=== PATIENT | female | born 1970 | race Two or more races ===

== ENCOUNTER 2024-11-09 06:28 | Emergency (ER) | payer MEDICAID, SELFPAY ==
[2024-11-09 06:31] VITALS: BMI 46.3
[2024-11-09 06:40] VITALS: BP 177/102; PULSE 94; RESP 20; TEMP 37; O2SAT 96
--- NOTE | 2024-11-09 06:51 | PD.EDRME ---
Rapid Medical Screening Exam [facility] Arrival date/time: 11/09/24 06:28 54-year-old female with history of CHF and hypertension presents to the emergency department today stating that she took her first dose of Wegovy on Thursday and since then she has been vomiting and feeling ill Chief Complaint: Nausea/Vomiting/Diarrhea Vital signs: Vital Signs Temperature 98.6 F 11/09/24 06:40 Pulse Rate 94 11/09/24 06:40 Respiratory Rate 20 11/09/24 06:40 Blood Pressure 177/102 H 11/09/24 06:40 Pulse Oximetry (%) 96 11/09/24 06:40 Oxygen Delivery Method Room Air 11/09/24 06:40
--- NOTE | 2024-11-09 07:16 | XR_ITS ---
Examination: CT abdomen and pelvis without contrast. Coronal 3-D reconstructions. Sagittal 2-D reconstructions. Date and time of exam:November 09, 2024 0855 hours Comparison February 07, 2022 INDICATIONS: Left flank pain and nausea beginning 3 days ago CTDI: vol (mGy): 16.3 DLP: (mGycm): 937 Technique: Axial images of the abdomen have been obtained, 3 mm slice thickness Intravenous contrast material has not been administered. Low dose protocols were performed. One or more of the following dose reduction techniques were used; automated exposure control, adjustment of the mA and/or KV according to patient size, use of iterative reconstruction technique. Findings: Liver mildly irregular in contour, no focal liver lesions Distended gallbladder with cholelithiasis No pancreatic or adrenal mass Moderate bilateral renal parenchymal scar formation No renal or ureteral calculi, no hydronephrosis Aorta normal size No bowel obstruction Normal appendix Colonic diverticulosis, no definite diverticulitis Uterine fundal mass at least 4 cm No adnexal mass Contracted urinary bladder Advanced degenerative disc disease L5-S1 IMPRESSION: Suspicious for primary hepatocellular disease Distended gallbladder with gallstones, recommend hepatobiliary sonography follow-up Moderate bilateral renal parenchymal scar formation, no renal or ureteral calculi, no hydronephrosis Normal appendix Colonic diverticulosis, no definite diverticulitis
--- NOTE | 2024-11-09 07:17 | PD.EDNV ---
Nausea/Vomit./Diarrhea-RME/HPI General Chief complaint: Nausea/Vomiting/Diarrhea Stated complaint: VOMITING SINCE THURSDAY AFTER GETTING WEGOVY SHOT Time Seen by Provider: 11/09/24 07:00 Arrival date/time: 11/09/24 06:28 RME / HPI RME / HPI Narrative: 11/09/24 06:28 54-year-old female with history of CHF and hypertension presents to the emergency department today stating that she took her first dose of Wegovy on Thursday and since then she has been vomiting and feeling ill This section includes all my notes and documentations, including HPI, PE, and ED course.? Roberto Denson MD HPI: 54 year old female with history of CHF, hypertension, depression, anxiety presents to the ED for evaluation of nausea and vomiting beginning 2 days ago Thursday. Accompanied by abdominal pain, mostly located to the upper quadrants, rating as moderate. Patient states she administered 1mg/0.5mL of Wegovy for weight loss for the first time 2 days ago and unsure if symptoms are secondary to that. Denies any fevers, chills, diarrhea, constipation, or urinary symptoms. Does report vaginal bleeding although states she is currently going through menopause and vaginal bleeding is erratic in the last several months. No other complaints. ROS: All negative except as documented in HPI. Physical Exam: General:? Alert and oriented.? Appears uncomfortable. Eyes:? Conjunctivae and lids clear.? ENT:? No nasal congestion.? Neck:? Supple.? Heart:? RRR.? Lungs:? No respiratory distress.? Good air movement.? No rhonchi, wheezing, rales.?? Abdomen:? Soft with upper quadrant tenderness, difficult to localize. Legs:? No clubbing, cyanosis, edema.? Skin:? Warm and dry.?? Neuro:? Alert and oriented X 3.?? I reviewed all diagnostic test results. My review of the US report is distended gallbladder with gallstones. My review of the CT report is?cholelithiasis. Blood tests remarkable for WBC 12.9. At this point, diagnoses include?gallstones. Treatment here included?IVF and Zofran and Dilaudid and Augmentin. Significant improvement noted. Recommended more outpatient care. Based on my best medical judgment, made decision no further evaluation or treatment indicated at this time.? Patient understands and agrees to the discharge instructions customized and printed, see below. Discharge Instructions from Dr. Denson: 1. After evaluation, your symptoms are due to gallstones with early infection.? You need gallbladder to help digest fatty foods. 2. So to prevent future attacks, avoid all fatty and oily and greasy and buttery and dairy foods.? This usually means take out and fast food restaurants. 3. Zofran for nausea/vomiting.? [place] for severe pain.? Augmentin for the infection. 4. See our surgeon media reconciliation specialist (Dr. Gaytan) on 11/10/2024 for further care, including discussion of elective surgery.? 5. Seek immediate medical care with intolerable pain, fever, or with any concerns. Roberto Denson MD Related Data Home Medications ?Medication ?Instructions ?Recorded ?Confirmed furosemide 40 mg tablet (Lasix) 20 mg PO QDAY DIURETIC #0 tabs 03/20/14 03/05/19 carvedilol 6.25 mg tablet (Coreg) 6.25 mg PO BID #0 tabs 04/05/17 03/05/19 docusate sodium 100 mg capsule 100 mg PO QDAY 07/24/18 03/05/19 (DOK) sertraline 50 mg tablet 100 mg PO QDAY 07/24/18 03/05/19 alprazolam 2 mg tablet 2 mg PO TID 03/05/19 03/05/19 aspirin 81 mg tablet,delayed 81 mg PO QDAY 03/05/19 03/05/19 release ferrous sulfate 325 mg (65 mg 325 mg PO QDAY 03/05/19 03/05/19 iron) tablet (Feosol) losartan 25 mg tablet 25 mg PO QDAY 03/05/19 03/05/19 Previous Rx's ?Medication ?Instructions ?Recorded spironolactone 25 mg tablet 25 mg PO QAM #14 tabs 02/26/18 baclofen 20 mg tablet 20 mg PO QDAY #10 tabs 03/05/19 naproxen 500 mg tablet 500 mg PO BID PRN pain #30 tabs 03/05/19 amoxicillin 500 mg tablet 500 mg PO TID #30 tabs 09/25/19 albuterol sulfate 90 mcg/actuation 2 puff inhalation QID #18 grams 08/21/20 aerosol inhaler azithromycin 250 mg tablet See Rx Instructions PO .COMPLEX #6 08/21/20 tabs baclofen 10 mg tablet 10 mg PO BID #10 tabs 12/06/23 amoxicillin 875 mg-potassium 1 tab PO BID #14 tabs 11/09/24 clavulanate 125 mg tablet hydrocodone 5 mg-acetaminophen 325 2 tab PO TID PRN pain #30 tabs 11/09/24 mg tablet Allergies Allergy/AdvReac Type Severity Reaction Status Date / Time Iodinated Contrast Media Allergy Severe Rash Verified 03/13/24 08:16 (Iodinated Contrast- Oral and IV Dye) tramadol Allergy Severe DIFF Verified 03/13/24 08:16 BREATHING, RASH watermelon AdvReac Severe Hives Verified 03/13/24 08:16 Review of Systems Review of Systems Systems Reviewed: All systems reviewed, normal except as documented Past Medical History Past Medical History CARDIAC: Positive Cardiac Disorders, Cardiac Arrhythmia, Angina, Hypercholesterolemia, Congestive Heart Failure, Edema and Hypertension GASTROINTESTINAL: Positive Gastrointestinal Disorders PSYCHO/SOCIAL: Positive Anxiety OTHER HISTORY: Positive Blood Transfusions and Cervical Cancer Family History FAMILY HISTORY: Negative Family Cardiac Disorders Surgical History SURGICAL: Positive Pacemaker Social History SMOKING STATUS: Never smoker SUBSTANCE USE: does not use ED Exam Narrative Physical exam: As noted in HPI Course Quality Measures none Orders Category Date Time Status Insert IV NOW Care 11/09/24 06:[address] abdomen pelvis wo con Stat Exams 11/09/24 07:16 Completed US gall bladder Stat Exams 11/09/24 09:57 Completed CBC Stat Lab 11/09/24 08:20 Completed Comprehensive Metabolic Panel Stat Lab 11/09/24 08:20 Completed HCG,Qualitative Serum Stat Lab 11/09/24 08:20 Completed Lipase Stat Lab 11/09/24 08:20 Completed Mag [Magnesium] Stat Lab 11/09/24 08:20 Completed Amoxicillin/Pot Clav 875 [Augmentin 875] Med 11/09/24 11:19 Discontinued 1 tab PO X1 ONE HYDROmorphone INJ [Dilaudid Inj] Med 11/09/24 07:15 Discontinued 1 mg IVP X1 ONE HYDROmorphone INJ [Dilaudid Inj] Med 11/09/24 11:46 Discontinued 1 mg IVP X1 ONE HYDROmorphone INJ [Dilaudid Inj] Med 11/09/24 13:39 Discontinued 2 mg IVP X1 ONE Metoclopramide Inj [Reglan Inj] Med 11/09/24 06:50 Discontinued 10 mg IVP X1 ONE Ondansetron Inj [Zofran Inj] Med 11/09/24 07:15 Discontinued 4 mg IV X1 ONE Ondansetron Inj [Zofran Inj] Med 11/09/24 11:46 Discontinued 4 mg IV X1 ONE Sodium Chloride 0.9% 1000 ml [Ns] 1,000 ml Med 11/09/24 07:15 Discontinued IV 999 mls/hr Vital Signs Vital signs: Vital Signs Temperature 98.6 F 11/09/24 06:40 Pulse Rate 94 11/09/24 06:40 Respiratory Rate 20 11/09/24 06:40 Blood Pressure 177/102 H 11/09/24 06:40 Pulse Oximetry (%) 96 11/09/24 06:40 Oxygen Delivery Method Room Air 11/09/24 06:40 Pulse ox is 96% on room air which is adequate. Nausea/Vomiting/Diarrhea MDM Narrative MDM Narrative:: Renetta Umanzor am scribing for and in the presence of Dr. Denson. Patient data External records reviewed:: [facility] previous records (I reviewed ED visit on 04/03/2024 ) Clinical information provided by:: patient Social determinants that could affect healthcare access:: none Patient has the following chronic illnesses:: CHF, hypertension, depression, anxiety How is presenting disease/condition affected by chronic disease/condition?: exacerbated by Evaluation data The following diagnostics were reviewed and interpreted by me:: lab results and radiology exam(s) Lab and/or radiology exams considered but not ordered:: None Interpretation Summary: My review of the US report is distended gallbladder with gallstones. My review of the CT report is?cholelithiasis. Medications / Prescriptions Medications / Prescriptions considered but not ordered:: None Medication administrations:: Medication Administration History Discontinued Medications Amoxicillin/Clavulanate Potassium (Amoxicillin/Pot Clav 875 Tablet) 1 tab PO X1 ONE Stop: 11/09/24 11:20 Last Admin: 11/09/24 12:33 Dose: 1 tab Documented By: DO Hydromorphone HCl (Hydromorphone Inj 2 Mg/Ml Vial) 1 mg IVP X1 ONE Stop: 11/09/24 07:16 Last Admin: 11/09/24 08:05 Dose: 1 mg Documented By: DO Hydromorphone HCl (Hydromorphone Inj 2 Mg/Ml Vial) 1 mg IVP X1 ONE Stop: 11/09/24 11:47 Last Admin: 11/09/24 12:33 Dose: 1 mg Documented By: DO Hydromorphone HCl (Hydromorphone Inj 2 Mg/Ml Vial) 2 mg IVP X1 ONE Stop: 11/09/24 13:40 Last Admin: 11/09/24 13:59 Dose: 2 mg Documented By: DO Sodium Chloride (Ns) 1,000 mls @ 999 mls/hr IV .Q1H1M ONE Stop: 11/09/24 08:15 Last Infusion: 11/09/24 13:40 Dose: Infused Documented By: Admin: 11/09/24 08:02 Dose: 999 mls/hr Documented By: DO Metoclopramide HCl (Metoclopramide Inj 5 Mg/Ml Vial 2 Ml) 10 mg IVP X1 ONE; Protocol Stop: 11/09/24 06:51 Last Admin: 11/09/24 08:04 Dose: 10 mg Documented By: DO Ondansetron HCl (Ondansetron Inj 2 Mg/Ml Inj 2 Ml) 4 mg IV X1 ONE; Protocol Stop: 11/09/24 07:16 Last Admin: 11/09/24 08:03 Dose: 4 mg Documented By: DO Ondansetron HCl (Ondansetron Inj 2 Mg/Ml Inj 2 Ml) 4 mg IV X1 ONE; Protocol Stop: 11/09/24 11:47 Last Admin: 11/09/24 12:33 Dose: 4 mg Documented By: DO Patient given IV fluid and Zofran and Reglan and Dilaudid and Augmentin. Consultations Consultation(s) initiated? (list below): No Diagnosis Nausea Differential Diagnosis: traveler's diarrhea, food poisoning, gastroenteritis, drug-induced nausea and vomiting, dehydration and other (Viral illness, gastritis, biliary colic) Most likely diagnosis given after review of the tests above:: Biliary colic Admission Indicated Admission indicated?: not indicated Explain why admission is indicated or not indicated:: Does not meet admission criteria. Admission Request Was there a request for admission?: No Disposition Plan Disposition Plan: Discharge Discharge Attestation Discharge Attestation: The patient and all family members were given an opportunity to ask questions and understood the discharge instructions. Discharge instructions specifically effects, indications for sooner follow up or return to the emergency department, and the expected course of current diagnosis. Patient condition: Stable Discharge Plan Plan Patient Disposition: HOME (Self Care) Prescriptions/Referrals Prescriptions/Med Rec: New hydrocodone-acetaminophen 5-325 mg tablet 2 tab PO TID MDD 6 PRN (Reason: pain) Qty: 30 0RF amoxicillin-pot clavulanate 875-125 mg tablet 1 tab PO BID Qty: 14 0RF No Action furosemide [Lasix] 40 MG tablet 20 mg PO QDAY Qty: 0 carvedilol [Coreg] 6.25 MG tablet 6.25 mg PO BID Qty: 0 spironolactone 25 mg tablet 25 mg PO QAM Qty: 14 0RF docusate sodium [DOK] 100 mg Capsule 100 mg PO QDAY sertraline 50 mg Tablet 100 mg PO QDAY aspirin 81 mg Tablet,Delayed Release (Dr/Ec) 81 mg PO QDAY ferrous sulfate [Feosol] 325 mg (65 mg iron) Tablet 325 mg PO QDAY losartan 25 mg Tablet 25 mg PO QDAY alprazolam 2 mg Tablet 2 mg PO TID baclofen 20 mg tablet 20 mg PO QDAY Qty: 10 0RF naproxen 500 mg tablet 500 mg PO BID PRN (Reason: pain) Qty: 30 0RF amoxicillin 500 mg tablet 500 mg PO TID Qty: 30 0RF azithromycin 250 mg tablet See Rx Instructions .ROUTE .COMPLEX Qty: 6 0RF Rx Instructions: take 500 mg today (day 1), then 250 mg for 4 days (days 2-5) albuterol sulfate 90 mcg/actuation HFA aerosol inhaler 2 puff inhalation QID Qty: 18 0RF baclofen 10 mg tablet 10 mg PO BID Qty: 10 0RF Referrals: Alexandra Gaytan MD [Physician] - Wilbur Yen MD [Primary Care Provider] - In 1 week Problem List Clinical Impression: Gallstones Patient/Caregiver Discharge Instructions Discharge Activity: activity as tolerated Education Materials: ED Gallstones with Biliary Colic Additional Instructions: Discharge Instructions from Dr. Denson: 1. After evaluation, your symptoms are due to gallstones with early infection.? You need gallbladder to help digest fatty foods. 2. So to prevent future attacks, avoid all fatty and oily and greasy and buttery and dairy foods.? This usually means take out and fast food restaurants. 3. Zofran for nausea/vomiting.? [place] for severe pain.? Augmentin for the infection. 4. See our surgeon media reconciliation specialist (Dr. Gaytan) on 11/10/2024 for further care, including discussion of elective surgery.? 5. Seek immediate medical care with intolerable pain, fever, or with any concerns. Print Language: Turkmen Stand Alone Forms: Lexie Award Info., Patient Portal Info Letter
[2024-11-09] MEDS: SODIUM CHLORIDE 0.9% 1000 ML 1,000 ML 999 ML IV (08:02)
[2024-11-09] MEDS: ONDANSETRON INJ 2 MG/ML INJ 2 ML 4 MG IV ×2 (08:03→12:33)
[2024-11-09] MEDS: METOCLOPRAMIDE INJ 5 MG/ML VIAL 2 ML 10 MG IVP (08:04)
[2024-11-09] MEDS: HYDROmorphone INJ 2 MG/ML VIAL 1 MG IVP ×2 (08:05→12:33)
[2024-11-09 08:15] VITALS: BP 145/93; PULSE 93; RESP 18; TEMP 37; O2SAT 94
[2024-11-09 08:34] LABS: Basophils % (Auto) 0 % (0-2.5); Eosinophils % (Auto) 0 % (0-10); Hematocrit 40.5 % (36.0-46.0); Hemoglobin 13.7 g/dL (12.0-16.0); Immature Granulocytes % (Auto) 1 % (0-0); Immature Granulocytes Auto 0.13 Thou/mm3 (0.00-0.00); Lymphocytes # (Auto) 1.4 Thou/mm3 (1.0-4.8); Lymphocytes % (Auto) 11 % (10-50); Mean Corpuscular HGB Conc 33.8 g/dl (31.0-37.0); Mean Corpuscular Hemoglobin 31.1 pg (25.0-35.0); Mean Corpuscular Volume 92 fL (80-100); Monocytes # (Auto) 0.5 Thou/mm3 (0.0-0.8); Monocytes % (Auto) 4 % (0-12); Neutrophils # (Auto) 10.9 Thou/mm3 (1.8-7.7); Neutrophils % (Auto) 84 % (37-80); Nucleated Red Blood Cell % 0 /100 WBC (0); Platelet Count 284 Thou/mm3 (140-440); RDW Standard Deviation 43.4 fL (36.4-46.3); White Blood Count 12.9 Thou/mm3 (3.6-11.0)
[2024-11-09 08:48] LABS: HCG,Qualitative Serum Negative
[2024-11-09 08:53] LABS: Alanine Aminotransferase 12 U/L (10-49); Albumin, Serum 5.1 gm/dL (3.5-5.0); Albumin/Globulin Ratio 1.8 (1.2-2.2); Alkaline Phosphatase 84 U/L (46-116); Anion Gap 12 (7-16); Aspartate Amino Transferase 17 U/L (0-34); BUN/Creatinine Ratio 20 Ratio (12-20); Bilirubin,Total 0.5 mg/dL (0.3-1.2); Blood Urea Nitrogen 12 mg/dL (9-23); Calcium 10.5 mg/dL (8.3-10.6); Calcium (Corrected) 10.5 mg/dL (8.5-10.1); Carbon Dioxide 27.5 mMol/L (20.0-31.0); Chloride 103 mMol/L (98-107); Creatinine (Component) 0.6 mg/dL (0.6-1.3); Estimated Creatinine Clearance 131.5 mL/min (>60); Globulin 2.9 gm/dL (2.3-3.5); Glucose 108 mg/dL (74-106); Lipase 29 U/L (12-53); Magnesium 1.9 mg/dL (1.6-2.6); Osmolality,Calculated 283 (275-295); Potassium 3.4 mMol/L (3.4-5.1); Sodium 142 mMol/L (136-145); eGFR > 60 See Note
--- NOTE | 2024-11-09 09:38 | PC.NURSE ---
food tray given to pt at this time
--- NOTE | 2024-11-09 09:57 | XR_ITS ---
Examination: Abdomen sonogram, Limited Date and time of exam: November 09, 2024 1033 hours INDICATIONS: Upper abdominal pain and vomiting beginning 3 days ago Technique: Real-time pardo scale transabdominal sonographic images of the upper abdomen obtained. Findings: 11 mm gallstone Distended gallbladder Gallbladder wall 0.41 cm no edema Common bile duct 0.4 cm no stones Pancreatic head 4.8 cm Liver 16.3 cm lobular contour fatty infiltration no focal liver lesions Normal hepatopedal portal venous flow Patent IVC IMPRESSION: Cholelithiasis Distended gallbladder Gallbladder wall is thickened 0.41 cm, consider HIDA scan or MRCP follow-up to exclude cholecystitis Sonographic measurement pancreas prominent, however on the CT abdomen study today no pancreatic mass or peripancreatic edema Primary hepatocellular disease
--- NOTE | 2024-11-09 10:11 | PC.NURSE ---
pt given small amount of ice chips at this time per request. okay per Dr. Denson
--- NOTE | 2024-11-09 10:33 | PC.NURSE ---
pt to ultrasound
[2024-11-09 12:19] VITALS: BP 178/76; PULSE 83; RESP 20; TEMP 36.6; O2SAT 95
[2024-11-09] MEDS: AMOXICILLIN/POT CLAV 875 TABLET 1 TAB PO (12:33)
[2024-11-09 13:39] VITALS: BP 173/101; PULSE 76; RESP 18; TEMP 36.9; O2SAT 94
--- NOTE | 2024-11-09 13:39 | PC.NURSE ---
WENT INTO ROOM TO DC PT. PT C/O PAIN TO ABD 05/21 AND BP 173/101. DR DODD INFORMED. AWAITING NEW ORDERS AT THIS TIME.
[2024-11-09] MEDS: HYDROmorphone INJ 2 MG/ML VIAL IVP (13:59)
[2024-11-09 15:29] VITALS: BP 167/97; PULSE 81; RESP 18; O2SAT 94
== END 2024-11-09 15:39 | disposition home or self-care (01) ==
PROVIDERS: Nurse Practitioner Primary Care; Emergency Provider Emergency Medicine; PCP Family Medicine
DX: K80.20 Calculus of gallbladder without cholecystitis without obstruction (principal); K82.8 Other specified diseases of gallbladder
CPT/HCPCS: 36415; 74176; 76705; 80053; 81001; 81025; 83690; 83735; 84703; 85025; 96361; 96374; 96375; 96376; 99284; J2405; J2765; J3490; J7030; A9270

== ENCOUNTER 2025-01-01 09:02 | Emergency (ER) | payer MEDICAID, SELFPAY ==
[2025-01-01 09:17] VITALS: BP 126/75; PULSE 91; RESP 24; TEMP 36.4; O2SAT 96; BMI 51.7
--- NOTE | 2025-01-01 09:26 | XR_ITS ---
Examination: Abdomen sonogram, Limited Date and time of exam: January 01, 2025 0936 hours INDICATIONS: Right upper abdominal pain and vomiting beginning one week ago, history gallstones Technique: Real-time pardo scale transabdominal sonographic images of the upper abdomen obtained. Findings: 12 mm gallstone Gallbladder wall is thickened 0.40 cm although no edema Common bile duct 0.5 cm Pancreatic head 3.0 cm Liver 18 cm fatty infiltration Normal hepatopedal portal venous flow Patent IVC IMPRESSION: Cholelithiasis Abnormal thickening of the gallbladder wall 0.40 cm, consider HIDA scan or MRCP follow-up to exclude cholecystitis Moderate hepatomegaly, fatty liver
--- NOTE | 2025-01-01 09:27 | PD.EDRME ---
Rapid Medical Screening Exam RME Arrival date/time: 01/01/25 09:02 This is a 54-year-old female who presents to the emergency department with complaints of right upper quadrant abdominal pain history of gallstones I have greeted and performed a focused initial assessment of this patient. Initial appropriate labs ordered at this time. A comprehensive ED assessment and evaluation of the patient and analysis of all test and completion of medical decision making process will be conducted by additional ED provider. Chief Complaint: Abdominal Pain Time Seen by Provider: 01/01/25 09:08 Vital signs: Vital Signs Temperature 97.6 F 01/01/25 09:17 Pulse Rate 91 01/01/25 09:17 Respiratory Rate 24 H 01/01/25 09:17 Blood Pressure 126/75 01/01/25 09:17 Pulse Oximetry (%) 96 01/01/25 09:17 Oxygen Delivery Method Room Air 01/01/25 09:17
[2025-01-01] MEDS: ONDANSETRON ODT 4 MG TABRAP PO (09:31)
[2025-01-01] MEDS: HYDROcodone/APAP 5/325 TABLET 1 TAB PO (10:07)
[2025-01-01 10:28] LABS: Basophils % (Auto) 1 % (0-2.5); Eosinophils # (Auto) 0.1 Thou/mm3 (0.0-0.5); Eosinophils % (Auto) 1 % (0-10); Hematocrit 39.1 % (36.0-46.0); Hemoglobin 12.8 g/dL (12.0-16.0); Immature Granulocytes % (Auto) 0 % (0-0); Immature Granulocytes Auto 0.01 Thou/mm3 (0.00-0.00); Lymphocytes # (Auto) 1.7 Thou/mm3 (1.0-4.8); Lymphocytes % (Auto) 22 % (10-50); Mean Corpuscular HGB Conc 32.7 g/dl (31.0-37.0); Mean Corpuscular Hemoglobin 30.8 pg (25.0-35.0); Mean Corpuscular Volume 94 fL (80-100); Monocytes # (Auto) 0.5 Thou/mm3 (0.0-0.8); Monocytes % (Auto) 7 % (0-12); Neutrophils # (Auto) 5.3 Thou/mm3 (1.8-7.7); Neutrophils % (Auto) 70 % (37-80); Nucleated Red Blood Cell % 0 /100 WBC (0); Platelet Count 243 Thou/mm3 (140-440); RDW Standard Deviation 45.1 fL (36.4-46.3); Red Blood Count 4.16 Miln/mm3 (4.00-5.20); White Blood Count 7.6 Thou/mm3 (3.6-11.0)
[2025-01-01 10:35] LABS: Alanine Aminotransferase 20 U/L (10-49); Albumin, Serum 4.7 gm/dL (3.5-5.0); Albumin/Globulin Ratio 1.7 (1.2-2.2); Alkaline Phosphatase 82 U/L (46-116); Anion Gap 7 (7-16); Aspartate Amino Transferase 20 U/L (0-34); BUN/Creatinine Ratio 15 Ratio (12-20); Bilirubin,Total 0.3 mg/dL (0.3-1.2); Blood Urea Nitrogen 12 mg/dL (9-23); Calcium 9.6 mg/dL (8.3-10.6); Calcium (Corrected) 9.6 mg/dL (8.5-10.1); Carbon Dioxide 30.8 mMol/L (20.0-31.0); Chloride 102 mMol/L (98-107); Creatinine (Component) 0.8 mg/dL (0.6-1.3); Estimated Creatinine Clearance 105.7 mL/min (>60); Globulin 2.7 gm/dL (2.3-3.5); Glucose 102 mg/dL (74-106); Lipase 47 U/L (12-53); Osmolality,Calculated 279 (275-295); Potassium 3.5 mMol/L (3.4-5.1); Sodium 140 mMol/L (136-145); Total Protein 7.4 gm/dL (5.7-8.2); eGFR > 60 See Note
[2025-01-01 11:06] LABS: Collection Type, Urine Clean Catch
--- NOTE | 2025-01-01 11:06 | PD.EDABDPN ---
ED Abdominal Pain RME/HPI General Chief Complaint: Abdominal Pain Stated complaint: RIGHT UPPER QUADRANT PAIN Time seen by provider: 01/01/25 09:08 Arrival date/time: 01/01/25 09:02 54 year old female present to emergency room with c/o of RUQ pain for 1 week, pt report history of gallstones, anemia, CHF , GERD, pacemaker, HDL. Pt had schedule outpatient surgery to removal of gallbladder but did not get cardiology clearance by Dr. Pritchett ( need stress test, schedule for December, ) Pt is currently on wegovy. SEVERITY: Symptoms are described as being severe with limitations on activities of daily living CONTEXT: The patient is unable to identify any inciting events. DURATION/TIMING: The symptoms started approximately 1 week ago worsen ASSOCIATED SYMPTOMS: Nausea and vomiting ongoing MODIFYING FACTORS: The patient is unable to identify any alleviating or aggravating symptoms. PERTINENT ROS: no fevers, no cough, no pleuritic pain, no ripping or tearing sensations, denies any lower extremity edema and no unilateral swelling, no chest pain/shortness of breath , no dizziness/headache no rash no loc/syncope episode no dsyuria,urgency,frequency REVIEW OF SYSTEMS: See History of Present Illness - with the exception of those mentioned in the history of present illness, all other systems reviewed and reported as negative GENERAL: In general the patient is awake, interactive, in an emergency department gurney. Obese HEAD/EYES/EARS/NOSE/THROAT: normo-cephalic, atraumatic, mucus membranes are moist, anicteric, palpebral conjunctiva is pink, trachea is midline. CARDIOVASCULAR: regular rate and regular rhythm, no murmurs, heart sounds are not distant, strong pulses in all four extremities that are equal and symmetric bilateral upper and lower extremities, normal capillary refill. CHEST/PULMONARY: normal chest rise and fall, good air movement, clear to auscultation bilaterally, normal inspiratory to expiratory ratios without evidence of respiratory distress. NECK: No midline/Paraspinal tenderness, no step off ROM/Strenght intact No Kernig and bruzinski sign. No trauma ABDOMEN: soft, RUQ tenderness, no flank tenderness no masses appreciated BACK: normal range of motion without pain. NEUROLOGICAL: cranio-facial features are symmetric, moves all four extremities equally without obvious limitations or weakness. EXTREMITY: no tenderness to palpation over the long bones or large joints of the bilateral upper and lower extremities, no joint swelling, no joint erythema, no signs of trauma, no unilateral leg swelling and no peripheral edema. SKIN: warm, dry, well-perfused, no jaundice, no rash, no telangiectasias or petechia. PSYCH: calm, cooperative, no evidence of psychosis or agitation RME / HPI RME / HPI narrative: 01/01/25 09:02 This is a 54-year-old female who presents to the emergency department with complaints of right upper quadrant abdominal pain history of gallstones I have greeted and performed a focused initial assessment of this patient. Initial appropriate labs ordered at this time. A comprehensive ED assessment and evaluation of the patient and analysis of all test and completion of medical decision making process will be conducted by additional ED provider. Related Data Home Medications ?Medication ?Instructions ?Recorded ?Confirmed furosemide 40 mg tablet (Lasix) 20 mg PO QDAY DIURETIC #0 tabs 03/20/14 03/05/19 carvedilol 6.25 mg tablet (Coreg) 6.25 mg PO BID #0 tabs 04/05/17 03/05/19 docusate sodium 100 mg capsule 100 mg PO QDAY 07/24/18 03/05/19 (DOK) sertraline 50 mg tablet 100 mg PO QDAY 07/24/18 03/05/19 alprazolam 2 mg tablet 2 mg PO TID 03/05/19 03/05/19 aspirin 81 mg tablet,delayed 81 mg PO QDAY 03/05/19 03/05/19 release ferrous sulfate 325 mg (65 mg 325 mg PO QDAY 03/05/19 03/05/19 iron) tablet (Feosol) losartan 25 mg tablet 25 mg PO QDAY 03/05/19 03/05/19 Previous Rx's ?Medication ?Instructions ?Recorded spironolactone 25 mg tablet 25 mg PO QAM #14 tabs 02/26/18 baclofen 20 mg tablet 20 mg PO QDAY #10 tabs 03/05/19 naproxen 500 mg tablet 500 mg PO BID PRN pain #30 tabs 03/05/19 amoxicillin 500 mg tablet 500 mg PO TID #30 tabs 09/25/19 albuterol sulfate 90 mcg/actuation 2 puff inhalation QID #18 grams 08/21/20 aerosol inhaler azithromycin 250 mg tablet See Rx Instructions PO .COMPLEX #6 08/21/20 tabs baclofen 10 mg tablet 10 mg PO BID #10 tabs 12/06/23 amoxicillin 875 mg-potassium 1 tab PO BID #14 tabs 11/09/24 clavulanate 125 mg tablet hydrocodone 5 mg-acetaminophen 325 2 tab PO TID PRN pain #30 tabs 11/09/24 mg tablet Allergies Allergy/AdvReac Type Severity Reaction Status Date / Time Iodinated Contrast Media Allergy Severe Rash Verified 01/01/25 09:08 (Iodinated Contrast- Oral and IV Dye) tramadol Allergy Severe DIFF Verified 01/01/25 09:08 BREATHING, RASH watermelon AdvReac Severe Hives Verified 01/01/25 09:08 Course Course Course Narrative: Review recent labs, US:IMPRESSION: Cholelithiasis Abnormal thickening of the gallbladder wall 0.40 cm, consider HIDA scan or MRCP follow-up to exclude cholecystitis Moderate hepatomegaly, fatty liver No MRCP/HIDA available on thursday, ask charged nurse Quality Measures none Orders Category Date Time Status EKG (ED ONLY) *Do not use* NOW Care 01/01/25 11:27 Completed EKG (ED Only) Stat Exams 01/01/25 11:27 Draft US gall bladder Stat Exams 01/01/25 09:26 Completed CBC Stat Lab 01/01/25 09:55 Completed Comprehensive Metabolic Panel Stat Lab 01/01/25 09:55 Completed INR [Prothrombin Time with INR] Stat Lab 01/01/25 09:55 Completed Lipase Stat Lab 01/01/25 09:55 Completed Troponin I Stat Lab 01/01/25 09:55 Completed Urinalysis Stat Lab 01/01/25 10:45 Completed HYDROcodone*/APAP 5/325 [[place] 5/325] Med 01/01/25 09:26 Discontinued 1 tab PO X1 ONE HYDROmorphone INJ [Dilaudid Inj] Med 01/01/25 12:58 Discontinued 1 mg IVP X1 ONE Ketorolac Inj [Toradol Inj] Med 01/01/25 11:56 Discontinued 30 mg IM X1 ONE Ondansetron Inj [Zofran Inj] Med 01/01/25 12:58 Discontinued 4 mg IV X1 ONE Ondansetron Odt [Zofran Odt] Med 01/01/25 09:26 Discontinued 4 mg PO X1 ONE Reevaluation(s) Reevaluation #1: pt is feeling better and comfortable to follow up with specialist for clearance. Vital Signs Vital signs: Vital Signs Temperature 97.6 F 01/01/25 09:17 Pulse Rate 91 01/01/25 09:17 Respiratory Rate 24 H 01/01/25 09:17 Blood Pressure 126/75 01/01/25 09:17 Pulse Oximetry (%) 96 01/01/25 09:17 Oxygen Delivery Method Room Air 01/01/25 09:17 Procedures -ED EKG Interpretation #1: Date of EK01/01/25 Rate: 77 Interpretation: Reviewed by me EKG Impression: Normal sinus rhythm, No acute ST-T changes, No ectopy and No ischemic changes Abdominal Pain MDM MDM Narrative MDM Narrative:: Patient?s symptoms not typical for emergent causes of abdominal pain such as, but not limited to, appendicitis, abdominal aortic aneurysm, surgical biliary disease, pancreatitis, SBO, mesenteric ischemia, serious intra-abdominal bacterial illness. Presentation also not typical of gynecologic emergencies such as?TOA, Ovarian Torsion, PID. Not Ectopic. Doubt atypical ACS. Pt tolerating PO. Disposition: Patient will be discharged with strict return precautions and follow up with primary MD within 12-24 hours for further evaluation. Patient understands that this still may have an early presentation of an emergent medical condition such as appendicitis that will require a recheck. Patient data External records reviewed:: [facility] previous records Clinical information provided by:: patient Social determinants that could affect healthcare access:: none Patient has the following chronic illnesses:: HDL, Gerd, Gallstones, CHF How is presenting disease/condition affected by chronic disease/condition?: exacerbated by Evaluation data The following diagnostics were reviewed and interpreted by me:: lab results and radiology exam(s) Lab and/or radiology exams considered but not ordered:: n/a Interpretation Summary: US: Cholelithiasis Abnormal thickening of the gallbladder wall 0.40 cm, consider HIDA scan or MRCP follow-up to exclude cholecystitis cbc/cmp/urine/labs wnl Medications / Prescriptions Medications or Prescriptions considered but not ordered:: n/a Medication administrations:: Medication Administration History Discontinued Medications Hydrocodone Bitart/Acetaminophen (Hydrocodone/Apap 5/325 Tablet) 1 tab PO X1 ONE Stop: 01/01/25 09:27 Last Admin: 01/01/25 10:07 Dose: 1 tab Documented By: MARCUS Hydromorphone HCl (Hydromorphone Inj 2 Mg/Ml Vial) 1 mg IVP X1 ONE Stop: 01/01/25 12:59 Last Admin: 01/01/25 13:26 Dose: 1 mg Documented By: MOSES Ketorolac Tromethamine (Ketorolac Inj 60 Mg/2 Ml Vial) 30 mg IM X1 ONE Stop: 01/01/25 11:57 Last Admin: 01/01/25 12:08 Dose: 30 mg Documented By: GISSELLE Ondansetron HCl (Ondansetron Odt 4 Mg Tabrap) 4 mg PO X1 ONE Stop: 01/01/25 09:27 Last Admin: 01/01/25 09:31 Dose: 4 mg Documented By: LLOYD Ondansetron HCl (Ondansetron Inj 2 Mg/Ml Inj 2 Ml) 4 mg IV X1 ONE; Protocol Stop: 01/01/25 12:59 Last Admin: 01/01/25 13:25 Dose: 4 mg Documented By: MOSES as stated above Consultations Consultation(s) initiated? (list below): Yes Consultation #1 (Physician, Specialty, Details): Dr. Irizarry for consult report patient okay to go home, need clearance from cardiology, pain control and discharge. spoke with patient and agreeable with treatment/plan.. Diagnosis Differential diagnosis abdominal pain: abdominal pain, calculus of kidney, constipation, gastroenteritis, pancreatitis and other (gallstone/choley ) Most likely diagnosis given after review of the tests above:: gallstone Admission Indicated Admission indicated?: not indicated Admission Request Was there a request for admission?: No Disposition Plan Disposition Plan: Discharge Discharge Attestation Discharge Attestation: The patient and all family members were given an opportunity to ask questions and understood the discharge instructions. Discharge instructions specifically effects, indications for sooner follow up or return to the emergency department, and the expected course of current diagnosis. Patient condition: Stable Discharge Plan Plan Health Concerns: Follow with PMD as directed Take tylenol or motrin as need Return to ED if sx worsen Prescriptions/Referrals Prescriptions/Med Rec: No Action furosemide [Lasix] 40 MG tablet 20 mg PO QDAY Qty: 0 carvedilol [Coreg] 6.25 MG tablet 6.25 mg PO BID Qty: 0 spironolactone 25 mg tablet 25 mg PO QAM Qty: 14 0RF docusate sodium [DOK] 100 mg Capsule 100 mg PO QDAY sertraline 50 mg Tablet 100 mg PO QDAY aspirin 81 mg Tablet,Delayed Release (Dr/Ec) 81 mg PO QDAY ferrous sulfate [Feosol] 325 mg (65 mg iron) Tablet 325 mg PO QDAY losartan 25 mg Tablet 25 mg PO QDAY alprazolam 2 mg Tablet 2 mg PO TID baclofen 20 mg tablet 20 mg PO QDAY Qty: 10 0RF naproxen 500 mg tablet 500 mg PO BID PRN (Reason: pain) Qty: 30 0RF amoxicillin 500 mg tablet 500 mg PO TID Qty: 30 0RF azithromycin 250 mg tablet See Rx Instructions .ROUTE .COMPLEX Qty: 6 0RF Rx Instructions: take 500 mg today (day 1), then 250 mg for 4 days (days 2-5) albuterol sulfate 90 mcg/actuation HFA aerosol inhaler 2 puff inhalation QID Qty: 18 0RF baclofen 10 mg tablet 10 mg PO BID Qty: 10 0RF hydrocodone-acetaminophen 5-325 mg tablet 2 tab PO TID MDD 6 PRN (Reason: pain) Qty: 30 0RF amoxicillin-pot clavulanate 875-125 mg tablet 1 tab PO BID Qty: 14 0RF Referrals: Wilbur Yen MD [Primary Care Provider] - In 1 week Problem List Clinical Impression: Gallstone Patient/Caregiver Discharge Instructions Education Materials: Treating Gallstones Print Language: Luxembourgish
--- NOTE | 2025-01-01 11:27 | EKG_ITS ---
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
[2025-01-01 11:31] LABS: Bilirubin,Urine Negative (Negative); Blood,Urine 3+ (Negative); Budding Yeast,Urine Present; Clarity,Urine Clear (Clear/Hazy); Glucose, Urine 4+ (Negative); Ketones,Urine Negative (Negative); Leukocyte Esterase,Urine Negative (Negative); Nitrite,Urine Negative (Negative); PH,Urine 6.5 (5.0-7.0); Protein,Urine Trace (Neg - Trace); RBC,Urine 28 /hpf (0-3); Specific Gravity,Urine 1.011 (1.001-1.035); Squamous Epithelial Cell,Urine 2 /hpf (0-5); Urobilinogen,Urine Negative mg/dL (0.0-1.0); WBC,Urine 4 /hpf (0-5)
[2025-01-01 11:32] LABS: Color,Urine Lt-Yellow (Lt Yel-Yel)
[2025-01-01 11:56] VITALS: BP 101/66; PULSE 82; RESP 20; TEMP 37.1; O2SAT 97
[2025-01-01] MEDS: KETOROLAC INJ 60 MG/2 ML VIAL 30 MG IM (12:08)
[2025-01-01 12:29] LABS: Troponin I < 0.002 ng/mL (0.0-0.045)
[2025-01-01 12:33] LABS: Prothrombin Time 10.9 Seconds (9.0-12.2)
[2025-01-01] MEDS: ONDANSETRON INJ 2 MG/ML INJ 2 ML 4 MG IV (13:25)
[2025-01-01] MEDS: HYDROmorphone INJ 2 MG/ML VIAL 1 MG IVP (13:26)
[2025-01-01 14:08] VITALS: BP 115/80; PULSE 80; RESP 16; TEMP 36.7; O2SAT 98
== END 2025-01-01 14:21 | disposition home or self-care (01) ==
PROVIDERS: Nurse Practitioner Primary Care; Physician Assistant; Emergency Provider Emergency Medicine; PCP Family Medicine
DX: K80.20 Calculus of gallbladder without cholecystitis without obstruction (principal); R94.31 Abnormal electrocardiogram [ECG] [EKG]
CPT/HCPCS: 36415; 76705; 80053; 81001; 83690; 84484; 85025; 85610; 93005; 96372; 96374; 96375; 99284; J1885; J2405; J3490; Q0162; A9270

== ENCOUNTER 2025-02-14 08:28 | Observation (INO) | payer MEDICAID, SELFPAY ==
--- NOTE | 2025-02-14 08:40 | XR_ITS ---
Examination: Abdomen sonogram, Limited Date and time of exam: February 14, 2025 0905 hours INDICATIONS: Right upper abdominal pain beginning 5 months ago Technique: Real-time pardo scale transabdominal sonographic images of the upper abdomen obtained. Findings: 13 mm gallstone Normal gallbladder wall Normal common bile duct 0.3 cm Pancreatic head 2.8 cm Liver 17 cm irregular contour fatty infiltration Normal hepatopedal portal venous flow Patent IVC IMPRESSION: Cholelithiasis, negative for cholecystitis Mild hepatomegaly suspect primary hepatocellular disease
--- NOTE | 2025-02-14 08:41 | PD.EDRME ---
Rapid Medical Screening Exam RME Arrival date/time: 02/14/25 08:28 55-year-old female history of gallstones presents to the emergency department today for complaints of gallstone pain Chief Complaint: Abdominal Pain
[2025-02-14 08:48] VITALS: BP 162/85; PULSE 84; RESP 18; TEMP 36.7; O2SAT 95
[2025-02-14] MEDS: KETOROLAC INJ 30 MG/ML VIAL IM (08:59)
[2025-02-14] MEDS: ONDANSETRON ODT 4 MG TABRAP PO (08:59)
[2025-02-14 09:21] LABS: Basophils % (Auto) 0 % (0-2.5); Eosinophils % (Auto) 0 % (0-10); Hematocrit 42.6 % (36.0-46.0); Hemoglobin 14.3 g/dL (12.0-16.0); Immature Granulocytes % (Auto) 0 % (0-0); Immature Granulocytes Auto 0.04 Thou/mm3 (0.00-0.00); Lymphocytes # (Auto) 1.7 Thou/mm3 (1.0-4.8); Lymphocytes % (Auto) 15 % (10-50); Mean Corpuscular HGB Conc 33.6 g/dl (31.0-37.0); Mean Corpuscular Hemoglobin 31.4 pg (25.0-35.0); Mean Corpuscular Volume 94 fL (80-100); Monocytes # (Auto) 0.6 Thou/mm3 (0.0-0.8); Monocytes % (Auto) 5 % (0-12); Neutrophils # (Auto) 9.2 Thou/mm3 (1.8-7.7); Neutrophils % (Auto) 80 % (37-80); Nucleated Red Blood Cell % 0 /100 WBC (0); Platelet Count 306 Thou/mm3 (140-440); RDW Standard Deviation 43.8 fL (36.4-46.3); Red Blood Count 4.55 Miln/mm3 (4.00-5.20); White Blood Count 11.5 Thou/mm3 (3.6-11.0)
[2025-02-14 10:04] LABS: Alanine Aminotransferase 10 U/L (10-49); Albumin, Serum 4.8 gm/dL (3.5-5.0); Albumin/Globulin Ratio 1.7 (1.2-2.2); Alkaline Phosphatase 84 U/L (46-116); Anion Gap 12 (7-16); Aspartate Amino Transferase 12 U/L (0-34); BUN/Creatinine Ratio 17 Ratio (12-20); Bilirubin,Total 0.6 mg/dL (0.3-1.2); Blood Urea Nitrogen 10 mg/dL (9-23); Calcium 9.3 mg/dL (8.3-10.6); Calcium (Corrected) 9.3 mg/dL (8.5-10.1); Carbon Dioxide 25.9 mMol/L (20.0-31.0); Chloride 104 mMol/L (98-107); Creatinine (Component) 0.6 mg/dL (0.6-1.3); Globulin 2.8 gm/dL (2.3-3.5); Glucose 119 mg/dL (74-106); Lipase 38 U/L (12-53); Osmolality,Calculated 283 (275-295); Potassium 3.2 mMol/L (3.4-5.1); Sodium 142 mMol/L (136-145); Total Protein 7.6 gm/dL (5.7-8.2); Troponin I < 0.002 ng/mL (0.0-0.045); eGFR > 60 See Note
[2025-02-14 10:47] VITALS: BP 170/72; PULSE 80; RESP 18; TEMP 37.1; O2SAT 95; BMI 48.1
--- NOTE | 2025-02-14 12:53 | PD.EDABDPN ---
ED Abdominal Pain RME/HPI General Chief Complaint: Abdominal Pain Stated complaint: GALLBLADDER HURTS Time seen by provider: 02/14/25 10:43 Arrival date/time: 02/14/25 08:28 55-year-old female history of gallstones presents to the emergency department today for complaints of gallstone pain Limitations: no limitations RME / HPI RME / HPI narrative: 02/14/25 08:28 Related Data Home Medications ?Medication ?Instructions ?Recorded ?Confirmed furosemide 40 mg tablet (Lasix) 20 mg PO QDAY DIURETIC #0 tabs 03/20/14 03/05/19 carvedilol 6.25 mg tablet (Coreg) 6.25 mg PO BID #0 tabs 04/05/17 03/05/19 docusate sodium 100 mg capsule 100 mg PO QDAY 07/24/18 03/05/19 (DOK) sertraline 50 mg tablet 100 mg PO QDAY 07/24/18 03/05/19 alprazolam 2 mg tablet 2 mg PO TID 03/05/19 03/05/19 aspirin 81 mg tablet,delayed 81 mg PO QDAY 03/05/19 03/05/19 release ferrous sulfate 325 mg (65 mg 325 mg PO QDAY 03/05/19 03/05/19 iron) tablet (Feosol) losartan 25 mg tablet 25 mg PO QDAY 03/05/19 03/05/19 Previous Rx's ?Medication ?Instructions ?Recorded spironolactone 25 mg tablet 25 mg PO QAM #14 tabs 02/26/18 baclofen 20 mg tablet 20 mg PO QDAY #10 tabs 03/05/19 naproxen 500 mg tablet 500 mg PO BID PRN pain #30 tabs 03/05/19 amoxicillin 500 mg tablet 500 mg PO TID #30 tabs 09/25/19 albuterol sulfate 90 mcg/actuation 2 puff inhalation QID #18 grams 08/21/20 aerosol inhaler azithromycin 250 mg tablet See Rx Instructions PO .COMPLEX #6 08/21/20 tabs baclofen 10 mg tablet 10 mg PO BID #10 tabs 12/06/23 amoxicillin 875 mg-potassium 1 tab PO BID #14 tabs 11/09/24 clavulanate 125 mg tablet hydrocodone 5 mg-acetaminophen 325 2 tab PO TID PRN pain #30 tabs 11/09/24 mg tablet Allergies Allergy/AdvReac Type Severity Reaction Status Date / Time Iodinated Contrast Media Allergy Severe Rash Verified 02/14/25 08:31 (Iodinated Contrast- Oral and IV Dye) tramadol Allergy Severe DIFF Verified 02/14/25 08:31 BREATHING, RASH watermelon AdvReac Severe Hives Verified 02/14/25 08:31 Review of Systems Review of Systems Systems Reviewed: All systems reviewed, normal except as documented Constitutional Constitutional: Reports system reviewed and no additional complaints, except as documented, Denies fever(s) and Denies headache(s) Eyes Eyes: Reports system reviewed and no additional complaints, except as documented and Denies blurry vision ENT Ears, Nose, Mouth, and Throat: Reports system reviewed and no additional complaints, except as documented, Denies headache(s), Denies nasal congestion and Denies nasal discharge Cardiovascular Cardiovascular: Reports system reviewed and no additional complaints, except as documented, Denies chest pain and Denies dyspnea Respiratory Respiratory: Reports system reviewed and no additional complaints, except as documented, Denies chest congestion, Denies cough and Denies dyspnea Gastrointestinal Gastrointestinal: Reports system reviewed and no additional complaints, except as documented, Reports abdominal pain, Reports nausea and Reports vomiting Integumentary/Breasts Skin/Breast: Reports system reviewed and no additional complaints, except as documented and Denies rash Neurologic Neurologic: Reports system reviewed and no additional complaints, except as documented, Reports as per HPI and Denies headache(s) Past Medical History Past Medical History CARDIAC: Positive Cardiac Disorders, Cardiac Arrhythmia, Angina, Hypercholesterolemia, Congestive Heart Failure, Edema and Hypertension RESPIRATORY: Negative Chronic Obstructive Pulmonary Disease (COPD) or Asthma GASTROINTESTINAL: Positive Gastrointestinal Disorders GENITOURINARY: Negative Renal Disease ENDOCRINE: Negative Diabetes Mellitus Type 1 or Diabetes Mellitus Type 2 HEMATOLOGIC: Negative Sickle Cell Disease PSYCHO/SOCIAL: Positive Anxiety OTHER HISTORY: Positive Blood Transfusions and Cervical Cancer Family History FAMILY HISTORY: Negative Family Cardiac Disorders Surgical History SURGICAL: Positive Pacemaker Social History SMOKING STATUS: Never smoker SUBSTANCE USE: does not use ED Exam General Limitations: Present no limitations General appearance: Present alert and in no apparent distress Head Head exam: Present atraumatic, normocephalic and normal inspection Eye Eye exam: Present normal appearance, PERRL and EOMI; Absent conjunctival injection ENT ENT exam: Present normal exam, normal oropharynx and mucous membranes moist Neck Neck exam: Present normal inspection, full ROM and trachea midline Chest Chest inspection: Present normal inspection and symmetric chest wall rise Respiratory Respiratory exam: Present normal lung sounds bilaterally; Absent respiratory distress, wheezes, stridor or accessory muscle use Cardiovascular Cardiovascular exam: Present regular rate, normal rhythm and normal heart sounds Abdominal Exam Abdominal exam: Present soft, tenderness, normal bowel sounds and tenderness at McBurney's Point; Absent distention, guarding, rebound or rigidity Abdominal tenderness: Present RUQ Extremities Exam Extremities exam: Present normal inspection and full ROM Back Exam Back exam: Present normal inspection and full ROM Neurological Exam Neurological exam: Present alert, oriented X3 and CN II-XII intact Psychiatric Psychiatric exam: Present normal affect and normal mood Skin Skin exam: Present warm, dry, intact and normal color Course Quality Measures none Orders Category Date Time Status COVID-19 Screening Questionnaire NOW Care 02/14/25 10:49 Active Decision to Admit X1 Care 02/14/25 10:49 Active Consult to General Surgery Stat Cons 02/14/25 10:49 Ordered US gall bladder Stat Exams 02/14/25 08:40 Completed CBC Stat Lab 02/14/25 08:49 Completed Comprehensive Metabolic Panel Stat Lab 02/14/25 08:49 Completed HCG Qualitative,Urine Stat Lab 02/14/25 08:40 Ordered Lipase Stat Lab 02/14/25 08:49 Completed Troponin I Stat Lab 02/14/25 08:49 Completed UA, C/S IF [Urinalysis, C/S if Indicated] Stat Lab 02/14/25 08:40 Ordered Ketorolac Inj [Toradol Inj] Med 02/14/25 08:52 Discontinued 30 mg IM X1 ONE Ondansetron Odt [Zofran Odt] Med 02/14/25 08:52 Discontinued 4 mg PO X1 ONE Vital Signs Vital signs: Vital Signs Temperature 98.0 F 02/14/25 08:48 Pulse Rate 84 02/14/25 08:48 Respiratory Rate 18 02/14/25 08:48 Blood Pressure 162/85 H 02/14/25 08:48 Pulse Oximetry (%) 95 02/14/25 08:48 Oxygen Delivery Method Room Air 02/14/25 08:48 O2 saturation 95% room air within normal limits Abdominal Pain MDM MDM Narrative MDM Narrative:: 55-year-old female history of gallstones presents to the emergency department today for complaints of gallstone pain Patient reports she is scheduled to have surgery on the with Dr. Irizarry patient reports persistent abdominal pain nausea and vomiting Patient given nausea medication pain medication patient reports intractable abdominal pain does not resolve with medication Dr. Denson he states patient should be admitted to hospital and he will consult for surgery tomorrow At time of admission patient is no distress Patient data External records reviewed:: [facility] previous records Clinical information provided by:: patient Social determinants that could affect healthcare access:: none Patient has the following chronic illnesses:: See history How is presenting disease/condition affected by chronic disease/condition?: caused by Evaluation data The following diagnostics were reviewed and interpreted by me:: lab results and radiology exam(s) Lab and/or radiology exams considered but not ordered:: Labs radiology obtained Interpretation Summary: Reviewed by me Medications / Prescriptions Medications or Prescriptions considered but not ordered:: Given Medication administrations:: Medication Administration History Acetaminophen (Acetaminophen 325 Mg Tablet) 650 mg PO Q6H PRN PRN Reason: PAIN 1-3 OR FEVER > 100.4 Stop: 03/16/25 12:00 Hydrocodone Bitart/Acetaminophen (Hydrocodone/Apap 5/325 Tablet) 1 tab PO Q6HR PRN PRN Reason: PAIN SCALE 4-6 (Moderate Stop: 02/19/25 12:00 Alprazolam (Alprazolam 0.25 Mg Tablet) 1 mg PO BID PRN PRN Reason: ANXIETY Stop: 02/19/25 12:05 Bupropion HCl (Bupropion Hcl Sr 150 Mg Tabcr) 150 mg PO QDAY [facility] Stop: 03/17/25 08:59 Carvedilol (Carvedilol 12.5 Mg Tablet) 25 mg PO BIDWM [facility] Stop: 03/16/25 17:29 Gabapentin (Gabapentin 300 Mg Capsule) 300 mg PO TID [facility] Stop: 03/16/25 13:59 Sodium Chloride (Ns) 1,000 mls @ 75 mls/hr IV .[id number] [facility] Stop: 03/16/25 12:14 Morphine Sulfate (Morphine Sulf Inj 10 Mg/Ml Vial) 1 mg IVP Q4HR PRN PRN Reason: PAIN SCALE 7-10 (Severe Stop: 02/19/25 12:00 Ondansetron HCl (Ondansetron Inj 2 Mg/Ml Inj 2 Ml) 4 mg IV Q6H PRN; Protocol PRN Reason: NAUSEA OR VOMITING Stop: 03/16/25 12:00 Pantoprazole Sodium (Pantoprazole Inj 40 Mg Vial) 40 mg IVP QDAY [facility] Stop: 03/17/25 08:59 Quetiapine Fumarate (Quetiapine Fumarate 100 Mg Tablet) 100 mg PO QDAY [facility] Stop: 03/17/25 08:59 Sertraline HCl (Sertraline Hcl 25 Mg Tablet) 100 mg PO HS [facility]AN[facility] Stop: 03/16/25 20:59 Discontinued Medications Ketorolac Tromethamine (Ketorolac Inj 30 Mg/Ml Vial) 30 mg IM X1 ONE Stop: 02/14/25 08:53 Last Admin: 02/14/25 08:59 Dose: 30 mg Documented By: DO Ondansetron HCl (Ondansetron Odt 4 Mg Tabrap) 4 mg PO X1 ONE; Protocol Stop: 02/14/25 08:53 Last Admin: 02/14/25 08:59 Dose: 4 mg Documented By: DO Given Consultations Consultation(s) initiated? (list below): Yes Consultation #1 (Physician, Specialty, Details): Dr. irizarry Diagnosis Differential diagnosis abdominal pain: abdominal pain, calculus of kidney, constipation, endometriosis, pancreatitis and other Most likely diagnosis given after review of the tests above:: Cholelithiasis Admission Indicated Admission indicated?: indicated Admission Request Was there a request for admission?: Yes Admission Attestation Admission request attestation: Discussed case with [] from Hospitalist service regarding admission. Discussed patients ED course, exam findings, labs, and radiology results. The Hospitalist [agrees,declines] to accept the patient for admission. 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 benoit
--- NOTE | 2025-02-14 13:07 | ESHP_ITS ---
Documentation for date of: 02/14/25 HPI History of Present Illness History of present illness: Herlinda Garcia is a 55-year-old female with a past medical history of CHF status- post ICD and pacemaker placement (follows Dr. Pritchett in [place]), history of myocardial infarction per patient, anxiety, and depression who presents on 02/14 for abdominal pain. Per patient, she was scheduled for an outpatient cholecystectomy sometime this month but could not bear pain any longer and presented to the ED. States that she has had right-sided abdominal pain since October, was associated with food, and as mentioned previously, she was scheduled for outpatient cholecystectomy. However, she does endorse sweats and chills but no fevers. In the ED, vitals showed elevated BP of 162/85, afebrile, and on room air. CBC showed mild leukocytosis of 11.5, K 3.2, normal t bili, normal ALP and LFTs. US gallbladder showed cholelithiasis but no signs of cholecystitis, liver irregular contour with fatty infiltration. General surgery consulted and pending cholecystectomy. PMHx: CHF s/p ICD and pacemaker, MN per patient without stent placement, anxiety, depression Medications: medroxyprogesterone, premarin, bumetanide 2 mg daily, jardiance 25 mg daily, carvedilol 25 mg BID, entresto 24-26 BID, sertraline 100 mg, quetiapine 100 mg, bupropion 150 mg, gabapentin 300 mg TID, alprazolam 2 mg BID, norco 10 FHx: cancer in mother SHx: denies alcohol, cigarette, illicit drug use PSHx: , ICD and pacemaker placement Review of Systems Review of Systems Systems Reviewed: All systems reviewed, normal except as documented Exam Vital Signs Temp Pulse Resp BP Pulse Ox O2 Del Method 98.7 F 80 18 170/72 H 95 Room Air 02/14/25 10:47 02/14/25 10:47 02/14/25 10:47 02/14/25 10:47 02/14/25 10:47 02/14/25 10:47 Narrative Exam General: AOx3, mild distress, able to speak full sentences HEENT: NC/AT, mucous membranes moist, bilateral sclera anicteric Cardiovascular: regular rate and rhythm, S1/S2 present, no murmurs appreciated Pulmonary: clear to auscultation bilaterally, no rales/rhonchi/wheezes Abdominal: tender in RUQ, obese, soft, non-distended, no rebound/guarding Musculoskeletal: normal ROM, no peripheral edema Skin: warm and dry, intact, no rashes Neuro: CN II-XII intact, no focal deficits Results: Labs 02/14/25 08:49 02/14/25 08:49 Labs: Short CBC 02/14/25 Range/Units 08:49 WBC 11.5 H (3.6-11.0) Thou/mm3 Hgb 14.3 (12.0-16.0) g/dL Hct 42.6 (36.0-46.0) % Plt Count 306 (140-440) Thou/mm3 BMP 02/14/25 08:49 Sodium 142 Potassium 3.2 L Chloride 104 Carbon Dioxide 25.9 BUN 10 Creatinine 0.6 Glucose 119 H Calcium 9.3 Cardiac Enzymes 02/14/25 Range/Units 08:49 Troponin I < 0.002 (0.0-0.045) ng/mL Liver Function 02/14/25 Range/Units 08:49 Total Bilirubin 0.6 (0.3-1.2) mg/dL AST 12 (0-34) U/L ALT 10 (10-49) U/L Alkaline Phosphatase 84 (46-116) U/L Albumin 4.8 (3.5-5.0) gm/dL Quality Measures Quality Measures none Medications Home Medications and Allergies Home Medications ?Medication ?Instructions ?Recorded ?Confirmed ?Type furosemide 40 mg tablet (Lasix) 20 mg PO QDAY DIURETIC #0 tabs 03/20/14 03/05/19 History carvedilol 6.25 mg tablet (Coreg) 6.25 mg PO BID #0 ta bs 04/05/17 03/05/19 History docusate sodium 100 mg capsule 100 mg PO QDAY 07/24/18 03/05/19 History (DOK) sertraline 50 mg tablet 100 mg PO QDAY 07/24/1802/10 History alprazolam 2 mg tablet 2 mg PO TID 03/05/19 9 History aspirin 81 mg tablet,delayed 81 mg PO QDAY 03/05/19 History release ferrous sulfate 325 mg (65 mg 325 mg PO QDAY 03/05/19 03/05/19 History iron) tablet (Feosol) losartan 25 mg tablet 25 mg PO QDAY 03/05/1903/05 History Allergies Allergy/AdvReac Type Severity Reaction Status Date / Time Iodinated Contrast Media Allergy Severe Rash Verified 02/14/25 08:31 (Iodinated Contrast- Oral and IV Dye) tramadol Allergy Severe DIFF Verified 02/14/25 08:31 BREATHING, RASH watermelon AdvReac Severe Hives Verified 02/14/25 08:31 Visit Medications Acetaminophen (Acetaminophen 325 Mg Tablet) 650 mg PO Q6H PRN PRN Reason: PAIN 1-3 OR FEVER > 100.4 Stop: 03/16/25 12:00 Hydrocodone Bitart/Acetaminophen (Hydrocodone/Apap 5/325 Tablet) 1 tab PO Q6HR PRN PRN Reason: PAIN SCALE 4-6 (Moderate Stop: 02/19/25 12:00 Alprazolam (Alprazolam 0.25 Mg Tablet) 1 mg PO BID PRN PRN Reason: ANXIETY Stop: 02/19/25 12:05 Bupropion HCl (Bupropion Hcl Sr 150 Mg Tabcr) 150 mg PO QDAY [facility] Stop: 03/17/25 08:59 Carvedilol (Carvedilol 12.5 Mg Tablet) 25 mg PO BIDWM [facility] Stop: 03/16/25 17:29 Gabapentin (Gabapentin 300 Mg Capsule) 300 mg PO TID [facility] Stop: 03/16/25 13:59 Sodium Chloride (Ns) 1,000 mls @ 75 mls/hr IV .[id number] [facility] Stop: 03/16/25 12:14 Morphine Sulfate (Morphine Sulf Inj 10 Mg/Ml Vial) 1 mg IVP Q4HR PRN PRN Reason: PAIN SCALE 7-10 (Severe Stop: 02/19/25 12:00 Ondansetron HCl (Ondansetron Inj 2 Mg/Ml Inj 2 Ml) 4 mg IV Q6H PRN; Protocol PRN Reason: NAUSEA OR VOMITING Stop: 03/16/25 12:00 Pantoprazole Sodium (Pantoprazole Inj 40 Mg Vial) 40 mg IVP QDAY [facility] Stop: 03/17/25 08:59 Quetiapine Fumarate (Quetiapine Fumarate 100 Mg Tablet) 100 mg PO QDAY [facility] Stop: 03/17/25 08:59 Sertraline HCl (Sertraline Hcl 25 Mg Tablet) 100 mg PO HS [facility] Stop: 03/16/25 20:59 Discontinued Medications Ketorolac Tromethamine (Ketorolac Inj 30 Mg/Ml Vial) 30 mg IM X1 ONE Stop: 02/14/25 08:53 Last Admin: 02/14/25 08:59 Dose: 30 mg Ondansetron HCl (Ondansetron Odt 4 Mg Tabrap) 4 mg PO X1 ONE; Protocol Stop: 02/14/25 08:53 Last Admin: 02/14/25 08:59 Dose: 4 mg Assessment & Plan Plan Herlinda Garcia is a 55-year-old female with a past medical history of CHF status- post ICD and pacemaker placement (follows Dr. Pritchett in [place]), history of myocardial infarction per patient, anxiety, and depression who presents on 02/14 for abdominal pain. Per patient, she was scheduled for an outpatient cholecystectomy sometime this month but could not bear pain any longer and presented to the ED. Admitted for abdominal pain secondary to biliary colic/cholelithiasis requiring cholecystectomy. #Cholelithiasis #Biliary colic Presents with right-sided abdominal pain for which patient was scheduled for outpatient cholecystectomy but due to unbearable pain presented to the ED. Afebrile, on room air, very mild leukocytosis, normal T. bili/ALP/LFTs. Right upper quadrant pain on exam. Gallbladder ultrasound showed cholelithiasis without signs of cholecystitis, irregular liver with fatty infiltration. ? General Surgery consulted, appreciate recommendations ? N.p.o. on IVF, pending cholecystectomy today if not tomorrow ? Pain management: Noro for moderate pain, morphine for severe pain #History of CHF s/p ICD and pacemaker Follows Dr. Pritchett in [place]. ? Continue carvedilol 25 mg PO BID ? Will hold bumex, jardiance, and entresto at this time #Anxiety #Depression ? Alprazolam 1 mg PO BID as needed ? Bupropion 150 mg PO daily ? Quetiapine 100 mg PO daily ? Sertaline 100 mg PO HS Hospital management: Disposition: pending cholecystectomy Fluids: LR at 80 cc/hr Diet: NPO, pending procedure Lines: IV DVT prophylaxis: SCDs GI prophylaxis: pantoprazole CODE STATUS: full code ----- Plan discussed with attending physician Dr. Asif Noel MD PGY-1 Internal Medicine Attending Provider Attestation/Addendum I reviewed labs, imaging, EKG, home medications and prior available records. Face to face evaluation was performed by me. I have personally examined the patient and discussed assessment and plan with the IM team. I reviewed the resident note and agree with the plan with exceptions as below. Intractable nausea and vomiting Biliary colic Cholelithiasis Morbid obesity Cardiomyopathy, likely HFrEF status post AICD, chronic Anxiety with depression Management of nausea/pain as needed Consulted general surgery: Plan for cholecystectomy tomorrow 02/15 Held IV fluids in the setting of CHF Hold Bumex in the setting of n.p.o. after midnight for cholecystectomy Resume home Coreg and Entresto Monitor BP Patient mentioned that she got the cardiac clearance for the surgery Outpatient weight management Resume home depression medications
[2025-02-14] MEDS: SODIUM CHLORIDE 0.9% 1000 ML 1,000 ML 75 ML IV (13:10)
[2025-02-14] MEDS: ONDANSETRON INJ 2 MG/ML INJ 2 ML 4 MG IV ×2 (13:13→22:03)
[2025-02-14] MEDS: MORPHINE SULF INJ 10 MG/ML VIAL IVP ×3 (13:13→22:00)
[2025-02-14 13:16] VITALS: BP 176/85; PULSE 68; RESP 18; TEMP 36.8; O2SAT 99
--- NOTE | 2025-02-14 13:18 | PD.SURCONS ---
HPI Consult details Consult date: 02/14/25 Reason for consultation narrative: Right upper quadrant abdominal pain with nausea and vomiting History of present illness: 55-year-old obese female with history of hypertension, diabetes, CHF status post ICD and pacemaker implantation and gallstone was admitted with worsening abdominal pain with nausea and vomiting. She has not been able to eat or tolerate any food. Her liver enzymes are unremarkable and ultrasound revealed multiple gallstones. She is being admitted for further management. Review of Systems Constitutional Constitutional: Denies chills and Denies fever(s) Cardiovascular Cardiovascular: Denies chest pain Respiratory Respiratory: Denies cough Gastrointestinal Gastrointestinal: Reports abdominal pain, Reports nausea and Reports vomiting Genitourinary Genitourinary: Denies difficulty voiding Musculoskeletal Musculoskeletal: Reports back pain Hematologic/Lymphatic Hematologic/Lymphatic: Denies easy bleeding and Denies easy bruising Past Medical History Surgical History OTHER SURGICAL HX: , pacemaker implantation Meds Home Medications and Allergies Home Medications ?Medication ?Instructions ?Recorded ?Confirmed ?Type furosemide 40 mg tablet (Lasix) 20 mg PO QDAY DIURETIC #0 tabs 03/20/14 03/05/19 History carvedilol 6.25 mg tablet (Coreg) 6.25 mg PO BID #0 tabs 04/05/17 02/15/25 History docusate sodium 100 mg capsule 100 mg PO QDAY 07/24/18 02/15/25 History (DOK) sertraline 50 mg tablet 100 mg PO QDAY 07/24/18 03/05/19 History alprazolam 2 mg tablet 2 mg PO TID 03/05/19 02/15/25 History aspirin 81 mg tablet,delayed 81 mg PO QDAY 03/05/19 02/15/25 History release ferrous sulfate 325 mg (65 mg 325 mg PO QDAY 03/05/19 02/15/25 History iron) tablet (Feosol) losartan 25 mg tablet 25 mg PO QDAY 03/05/19 03/05/19 History Jardiance 25 mg PO QDAY 02/15/25 02/15/25 History Premarin 0.625 mg PO QDAY 02/15/25 02/15/25 History alprazolam 2 mg PO BID 02/15/25 02/15/25 History bumetanide 2 mg tablet 2 mg PO QDAY 02/15/25 02/15/25 History bupropion HCl 150 mg tablet,12 hr 150 mg PO QDAY 02/15/25 02/15/25 History sustained-release carvedilol 25 mg PO BID 02/15/25 02/15/25 History gabapentin 300 mg capsule 300 mg PO TID 02/15/25 02/15/25 History hydrocodone 10 mg-acetaminophen 1 tab PO BID 02/15/25 02/15/25 History 325 mg tablet medroxyprogesterone 2.5 mg tablet 2.5 mg PO QDAY 02/15/25 02/15/25 History quetiapine 100 mg tablet 100 mg PO QDAY 02/15/25 02/15/25 History sacubitril 24 mg-valsartan 26 mg 1 tab PO BID 02/15/25 02/15/25 History tablet (Entresto) sertraline 100 mg tablet 100 mg PO QDAY 02/15/25 02/15/25 History Allergies Allergy/AdvReac Type Severity Reaction Status Date / Time Iodinated Contrast Media Allergy Severe Rash Verified 02/14/25 08:31 (Iodinated Contrast- Oral and IV Dye) tramadol Allergy Severe DIFF Verified 02/14/25 08:31 BREATHING, RASH watermelon AdvReac Severe Hives Verified 02/14/25 08:31 Exam Vital Signs Temp Pulse Resp BP Pulse Ox O2 Del Method 98.7 F 80 18 170/72 H 95 Room Air 02/14/25 10:47 02/14/25 10:47 02/14/25 10:47 02/14/25 10:47 02/14/25 10:47 02/14/25 10:47 Constitutional Constitutional: no acute distress Routine HEENT Exam Eye: Present PERRL (Anicteric sclera) Routine Abdominal Exam Comments: Abdomen is soft and nondistended. She has tenderness to palpation in the right upper quadrant with guarding, no rebound tenderness or peritonitis at this time Results Results: Laboratory Laboratory results: results reviewed Results: Imaging Imaging narrative: Abdominal ultrasound findings reviewed, radiologist interpretation noted Assessment & Plan Problem List (1) Nausea & vomiting: Status: Acute (2) Biliary calculus with cholecystitis: Status: Acute Plan Keep n.p.o. with IV fluids. Will plan for laparoscopic possible open cholecystectomy if OR available today if not tomorrow. Risks include but not limited to infection, bleeding, injury to bowel, liver, stomach, bile duct, retained stone, bile leak, abdominal sepsis and or abdominal abscess, need for further procedure and or operation discussed with the patient. Benefits and alternatives explained to her, all her questions answered, she agreed and consented to proceed with the operation. (2) Biliary calculus with cholecystitis Qualifiers: Biliary obstruction: without biliary obstruction Cholecystitis acuity: chronic Cholelithiasis location: gallbladder Qualified Code(s): K80.10 - Calculus of gallbladder with chronic cholecystitis without obstruction
[2025-02-14] MEDS: ALPRazoLAM 0.25 MG TABLET 1 MG PO (13:56)
[2025-02-14] MEDS: GABAPENTIN 300 MG CAPSULE PO ×2 (13:57→21:24)
[2025-02-14] MEDS: HYDROcodone/APAP 5/325 TABLET 1 TAB PO (14:41)
[2025-02-14] MEDS: POTASSIUM CHL 10 mEq IVPB 10 MEQ/100 ML BAG 100 MEQ IV ×3 (15:56→21:21)
[2025-02-14 16:06] VITALS: BMI 48.1
[2025-02-14 17:54] VITALS: BP 176/85; PULSE 68
[2025-02-14] MEDS: carVEDILOL 12.5 MG TABLET 25 MG PO (17:54)
[2025-02-14] MEDS: POTASSIUM CHL 10 mEq IVPB 10 MEQ/100 ML BAG 50 MEQ IV (17:56)
--- NOTE | 2025-02-14 18:47 | PC.NURSE ---
Educated patient on need for getting test prior to surgery. Patient refuse stating there is no way she can he , she is going through menopause having her period on and off, denies having a sexual partner, refuses test.
[2025-02-14 20:00] VITALS: BP 133/71; PULSE 65; RESP 17; TEMP 36.4; O2SAT 97
[2025-02-14] MEDS: SERTRALINE HCL 25 MG TABLET 100 MG PO (20:13)
[2025-02-14] MEDS: SACUBITRIL 24 MG/VALSARTAN 26 MG TABLET 1 TAB PO (20:13)
[2025-02-14] MEDS: ACETAMINOPHEN 325 MG TABLET 650 MG PO (20:13)
[2025-02-14 20:40] LABS: Collection Type, Urine Clean Catch
[2025-02-14 20:48] LABS: HCG Qualitative,Urine Negative
[2025-02-14 21:04] LABS: Bacteria,Urine 4+; Bilirubin,Urine 1+ (Negative); Blood,Urine 3+ (Negative); Clarity,Urine Turbid (Clear/Hazy); Color,Urine Yellow (Lt Yel-Yel); Glucose, Urine Negative (Negative); Ketones,Urine 1+ (Negative); Leukocyte Esterase,Urine Positive (Negative); Nitrite,Urine Negative (Negative); Protein,Urine 2+ (Neg - Trace); RBC,Urine 41 /hpf (0-3); Specific Gravity,Urine 1.029 (1.001-1.035); Squamous Epithelial Cell,Urine 7 /hpf (0-5); WBC,Urine 31 /hpf (0-5)
[2025-02-14 21:10] LABS: Culture Indicated,Urine Yes
[2025-02-15] VITALS (12 sets, daily range): BP systolic 140–181; BP diastolic 80–102; PULSE 60–77; RESP 12–93; TEMP 36.2–36.6; O2SAT 93–99
--- NOTE | 2025-02-15 01:57 | PC.NURSE ---
UA results came back positive for 4+A bacteria. Dr. Ricks was made aware. MD to review patient's chart.
[2025-02-15] MEDS: MORPHINE SULF INJ 10 MG/ML VIAL IVP ×5 (03:25→20:59)
[2025-02-15 05:49] LABS: Basophils % (Auto) 1 % (0-2.5); Eosinophils # (Auto) 0.1 Thou/mm3 (0.0-0.5); Eosinophils % (Auto) 2 % (0-10); Hematocrit 38.6 % (36.0-46.0); Hemoglobin 12.8 g/dL (12.0-16.0); Immature Granulocytes % (Auto) 0 % (0-0); Immature Granulocytes Auto 0.01 Thou/mm3 (0.00-0.00); Lymphocytes # (Auto) 1.9 Thou/mm3 (1.0-4.8); Lymphocytes % (Auto) 24 % (10-50); Mean Corpuscular HGB Conc 33.2 g/dl (31.0-37.0); Mean Corpuscular Hemoglobin 31.6 pg (25.0-35.0); Mean Corpuscular Volume 95 fL (80-100); Monocytes # (Auto) 0.6 Thou/mm3 (0.0-0.8); Monocytes % (Auto) 7 % (0-12); Neutrophils # (Auto) 5.2 Thou/mm3 (1.8-7.7); Neutrophils % (Auto) 67 % (37-80); Nucleated Red Blood Cell % 0 /100 WBC (0); Platelet Count 201 Thou/mm3 (140-440); RDW Standard Deviation 45.1 fL (36.4-46.3); Red Blood Count 4.05 Miln/mm3 (4.00-5.20); White Blood Count 7.8 Thou/mm3 (3.6-11.0)
[2025-02-15 06:05] LABS: Partial Thromboplastin Time 26.8 Seconds (22.0-36.0); Prothrombin Time 11.1 Seconds (9.0-12.2)
[2025-02-15 06:22] LABS: Anion Gap 7 (7-16); BUN/Creatinine Ratio 17 Ratio (12-20); Blood Urea Nitrogen 12 mg/dL (9-23); Calcium 8.8 mg/dL (8.3-10.6); Cardiac Risk Estimate 4.3 RATIO (3.7-5.6); Chloride 107 mMol/L (98-107); Cholesterol 165 mg/dL (132-200); Creatinine (Component) 0.7 mg/dL (0.6-1.3); Estimated Creatinine Clearance 114.1 mL/min (>60); Glucose 104 mg/dL (74-106); HDL Cholesterol 38 mg/dL (40-60); LDL Cholesterol,Calculated 93 mg/dL (0-130); Osmolality,Calculated 284 (275-295); Phosphorous 3.9 mg/dL (2.4-5.1); Potassium 3.6 mMol/L (3.4-5.1); Sodium 143 mMol/L (136-145); Triglycerides 170 mg/dL (30-150); eGFR > 60 See Note
[2025-02-15] MEDS: ONDANSETRON INJ 2 MG/ML INJ 2 ML 4 MG IV ×2 (08:15→12:42)
[2025-02-15] MEDS: PANTOPRAZOLE INJ 40 MG VIAL IVP (08:15)
--- NOTE | 2025-02-15 09:23 | PC.SS ---
Team A reported the pt will undergo a gallbladder removal today. Possible d/c today if pt has the gallbladder removal today.
--- NOTE | 2025-02-15 09:35 | CHAP ---
Gave patient some words of comfort and prayer.
[2025-02-15] MEDS: carVEDILOL 12.5 MG TABLET 25 MG PO ×2 (10:21→18:04)
--- NOTE | 2025-02-15 11:21 | PC.NURSE ---
pt refused KCl liquid as she says she vomited after taking it before, she wants to try pills, that was ok'd by Dr. Hollingsworth
--- NOTE | 2025-02-15 11:28 | SUR.PHASEI ---
pt received from OR in recovery bay 4. pt obtunded, breathing unlabored on oxymask 10l, oral airway in place. v/s stable. pt dressing to abd dermabond x4 ports cdi. report received from Dr. Banks and Aimee FRITZ.
--- NOTE | 2025-02-15 11:33 | ESOP_ITS ---
Date of Procedure 02/15/25 Pre Op Diagnosis Symptomatic cholelithiasis Post Op Diagnosis Cholelithiasis with cholecystitis Procedure Laparoscopic cholecystectomy Findings Distended gallbladder with gallstone and chronic cholecystitis. Mildly enlarged and fatty appearing liver Procedure Description Patient was brought into the operating room in supine position. After administration of general endotracheal anesthesia abdomen was prepped and draped in standard surgical manner. A Veress needle was inserted through the umbilicus and pneumoperitoneum was obtained up to 15 mmHg. The Veress needle was then removed, a 5 mm supraumbilical incision was made and the 5mm trocar was inserted. Laparoscopic camera was placed. Under direct visualization a laparoscopic camera a 10 mm trocar was placed in subxiphoid and two 5 mm trocars placed in right upper quadrant. The liver was mildly enlarged with fatty in appearance. The gallbladder was identified and was noted to be moderately distended with gallstones and chronic cholecystitis. It was retracted cephalad and laterally. Dissection started near the infundibulum of gallbladder where cystic duct and gallbladder junction clearly identified. The cystic duct was circumferentially dissected off the peritoneum and surrounding inflammatory tissue. The critical view of safety was clearly demonstrated. Cystic duct was then divided between 2 endoclips proximally and one distally. The cystic artery was similarly dissected and divided. The gallbladder was then from the liver bed using electrocautery. The gallbladder was then placed inside an Endo Catch and removed from the abdomen utilizing subxiphoid trocar site. The area was copiously and thoroughly washed and irrigated, all the fluid was suctioned and the suction fluid returned clear. Hemostasis achieved using electrocautery. Endoclips noted be in place and intact without any bleeding or any leakage. Hemostasis was adequate and satisfactory. The subxiphoid trocar sites fascial defect was closed with 0 Vicryl using Endo Closure device. Instruments and trocars removed, pneumoperitoneum was evacuated and the incisions closed with 4-0 Monocryl in subcuticular fashion. Instrument needle and sponge counts were all reported to be correct X2. Patient tolerated the procedure well, was extubated, breathing spontaneously and without difficulty and was transferred to postanesthesia care in stable condition. Anesthesia GETA and local Pathology / specimen Other (Gallbladder and contents) Estimated Blood Loss 10 Condition Stable Disposition PACU Surgeon Leroy Irizarry MD Surgical Staff Operation Date: 02/15/25 10:30 Case Staff Anesthesiologist: Allan Banks core composer feeder: Neeta Franco
--- NOTE | 2025-02-15 11:46 | SUR.PHASEI ---
pt lying in [place] with eyes closed, breathing unlabored, responds to voice, dressing clean, dry, and intact, report from Aaron FRITZ
[2025-02-15] MEDS: fentaNYL CIT INJ 50 mCg/ML AMP 2ML IV (11:59)
--- NOTE | 2025-02-15 12:12 | SUR.PHASEI ---
pt awake, alert, able to follow commands, breathing unlabored, dressing to abdomen clean, dry, and intact, pt able to tolerate ice chips without difficulty swallowing or n/v, report called to Lisa FRITZ, pt transferred to room at this time.
--- NOTE | 2025-02-15 14:27 | PD.ANESPROG ---
Documentation for date of: 02/15/25 ANESTHESIA NOTE: Patient had GETA for lap cholecystectomy earlier today. Pre-op, she has h/o CHF s/p AICD. 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 I obtained her records and placed them in her chart, echo showed EF 40%. She did well intra-op. Magnet was placed over her AICD intra-op before incision and taken off at the end of surgery. She did well in PACU and was later transferred back to floor. Will defer further management to the floor team, recommend to resume her beta jose alfredo unless contraindicated. Alaln Banks MD Anesthesia Progress Note Progress Note Most recent Vital Signs: Last Vital Signs Temp 97.6 F 02/15/25 12:10 Pulse 70 02/15/25 12:10 Resp 17 02/15/25 12:10 BP 148/86 H 02/15/25 12:10 Pulse Ox 96 02/15/25 12:10 O2 Del Method Room Air 02/15/25 04:00 O2 Flow Rate 10 02/15/25 11:40
[2025-02-15] MEDS: BUPROPION HCL 150 MG PO (15:32)
[2025-02-15] MEDS: QUEtiapine FUMARATE 100 MG TABLET PO (15:32)
[2025-02-15] MEDS: GABAPENTIN 300 MG CAPSULE PO ×2 (15:32→20:59)
[2025-02-15] MEDS: HYDROcodone/APAP 5/325 TABLET 1 TAB PO ×2 (15:32→23:32)
[2025-02-15] MEDS: ALPRazoLAM 0.25 MG TABLET 1 MG PO (20:59)
[2025-02-15] MEDS: SERTRALINE HCL 25 MG TABLET 100 MG PO (20:59)
[2025-02-15] MEDS: SACUBITRIL 24 MG/VALSARTAN 26 MG TABLET 1 TAB PO (21:00)
[2025-02-15] MEDS: DOCUSATE SOD 100 MG CAPSULE PO (21:00)
--- NOTE | 2025-02-15 23:36 | ESPR_ITS ---
Documentation for date of: 02/15/25 Subjective Subjective Interval history: Overnight, no acute events reported. Patient is scheduled for a cholecystectomy today at 10:[address] Irizarry. Patient is eager for surgery. Depending on surgery recommendations, patient will most likely be discharged later today or tomorrow. Patient is currently on IV pain medications and her home antidepressants and anxiolytics. Exam Vital Signs Temp Pulse Resp BP Pulse Ox O2 Del Method O2 Flow Rate 97.4 F 75 16 163/86 H 93 L Room Air 10 02/15/25 20:00 02/15/25 20:00 02/15/25 20:00 02/15/25 20:00 02/15/25 20:00 02/15/25 20:00 02/15/25 11:40 Narrative Exam General Appearance: Pt in no apparent distress, able to speak full sentences, well-nourished, well-developed. HEENT: NC/AT, no scleral icterus, no conjunctival pallor, MMM Lungs: CTAB, no wheezes or crackles appreciated CVS: RRR, S1/S2 heard, no murmurs or rubs appreciated ABD: Tender in right upper quadrant, obese soft, non-distended, BS + EXT: no deformity/edema/lesions/cyanosis/clubbing, radial pulses 2+ BL, DP pulses 2 + BL SKIN: Skin exam normal without any rashes. Neuro: A&O x 3. No gross neurological deficits. Motor and sensory grossly intact in B/L UL and LL. Psych: Appropriate mood and affect Objective Labs 02/16/25 05:52 02/16/25 05:52 Labs: Laboratory Results - last 24 hr 02/15/25 05:23 WBC 7.8 RBC 4.05 Hgb 12.8 Hct 38.6 MCV 95 MCH 31.6 MCHC 33.2 RDW Std Deviation 45.1 Plt Count 201 D Neut % (Auto) 67 Lymph % (Auto) 24 [place] % (Auto) 7 Eos % (Auto) 2 Baso % (Auto) 1 Neut # (Auto) 5.2 Lymph # (Auto) 1.9 [place] # (Auto) 0.6 Eos # (Auto) 0.1 Baso # (Auto) 0.0 Immature Gran # (Auto) 0.01 H Absolute Nucleated RBC 0.00 Immature Gran % 0 Nucleated RBC % 0 PT 11.1 INR 1.0 APTT 26.8 Sodium 143 Potassium 3.6 Chloride 107 Carbon Dioxide 29.0 Anion Gap 7 BUN 12 Creatinine 0.7 Estim Creat Clear Calc 114.1 eGFR > 60 BUN/Creatinine Ratio 17 Glucose 104 Calculated Osmolality 284 Calcium 8.8 Phosphorus 3.9 Magnesium 2.0 Triglycerides 170 H Cholesterol 165 LDL Cholesterol, Calc 93 HDL Cholesterol 38 L Cholesterol/HDL Ratio 4.3 Quality Measures Quality Measures none Assessment & Plan Assessment Current Active Medications: Generic Name Dose Route Start Last Admin Trade Name Freq PRN Reason Stop Dose Admin Acetaminophen 650 mg 02/14/25 12:01 02/14/25 20:13 Acetaminophen 325 Mg Tablet PO 03/16/25 12:00 650 mg Q6H PRN Administration PAIN 1-3 OR FEVER > 100.4 Hydrocodone Bitart/Acetaminophen 1 tab 02/14/25 12:01 02/15/25 23:32 Hydrocodone/Apap 5/325 Tablet PO 02/19/25 12:00 1 tab Q6HR PRN Administration PAIN SCALE 4-6 (Moderate Alprazolam 1 mg 02/14/25 12:06 02/15/25 20:59 Alprazolam 0.25 Mg Tablet PO 02/19/25 12:05 1 mg BID PRN Administration ANXIETY Bupropion HCl 150 mg 02/15/25 09:00 02/15/25 15:32 Bupropion Hcl Sr 150 Mg Tabcr PO 03/17/25 08:59 150 mg QDAY LISANDRA Administration Carvedilol 25 mg 02/14/25 17:30 02/15/25 18:04 Carvedilol 12.5 Mg Tablet PO 03/16/25 17:29 25 mg BIDWM LISANDRA Administration Docusate Sodium 100 mg 02/15/25 21:00 02/15/25 21:00 Docusate Sod 100 Mg Capsule PO 03/17/25 20:59 100 mg BID LISANDRA Administration Protocol Gabapentin 300 mg 02/14/25 14:00 02/15/25 20:59 Gabapentin 300 Mg Capsule PO 03/16/25 13:59 300 mg TID LISANDRA Administration Morphine Sulfate 4 mg 02/15/25 22:33 Morphine Sulf Inj 10 Mg/Ml Vial IVP 02/19/25 12:00 Q4HR PRN PAIN SCALE 7-10 (Severe Ondansetron HCl 4 mg 02/14/25 12:01 02/15/25 12:42 Ondansetron Inj 2 Mg/Ml Inj 2 Ml IV 03/16/25 12:00 4 mg Q6H PRN Administration NAUSEA OR VOMITING Protocol Pantoprazole Sodium 40 mg 02/15/25 09:00 02/15/25 08:15 Pantoprazole Inj 40 Mg Vial IVP 03/17/25 08:59 40 mg QDAY LISANDRA Administration Quetiapine Fumarate 100 mg 02/15/25 09:00 02/15/25 15:32 Quetiapine Fumarate 100 Mg Tablet PO 03/17/25 08:59 100 mg QDAY LISANDRA Administration Sacubitril/Valsartan 1 tab 02/14/25 21:00 02/15/25 21:00 Sacubitril 24 Mg/Valsartan 26 Mg Tablet PO 03/16/25 20:59 1 tab BID LISANDRA Administration Sertraline HCl 100 mg 02/14/25 21:00 02/15/25 20:59 Sertraline Hcl 25 Mg Tablet PO 03/16/25 20:59 100 mg HS LISANDRA Administration Plan Herlinda Garcia is a 55-year-old female with a past medical history of CHF status- post ICD and pacemaker placement (follows Dr. Pritchett in [place]), history of myocardial infarction per patient, anxiety, and depression who presents on 02/14 for abdominal pain. Per patient, she was scheduled for an outpatient cholecystectomy sometime this month but could not bear pain any longer and presented to the ED. Admitted for abdominal pain secondary to biliary colic/cholelithiasis requiring cholecystectomy. #Cholelithiasis #Biliary colic Presents with right-sided abdominal pain for which patient was scheduled for outpatient cholecystectomy but due to unbearable pain presented to the ED. Afebrile, on room air, very mild leukocytosis, normal T. bili/ALP/LFTs. Right upper quadrant pain on exam. Gallbladder ultrasound showed cholelithiasis without signs of cholecystitis, irregular liver with fatty infiltration. ? General Surgery consulted, appreciate recommendations ? N.p.o. on IVF, pending cholecystectomy today ? Pain management: Noro for moderate pain, morphine for severe pain #History of CHF s/p ICD and pacemaker Follows Dr. Pritchett in [place]. ? Continue carvedilol 25 mg PO BID ? Will hold bumex, jardiance, and entresto at this time #Anxiety #Depression ? Alprazolam 1 mg PO BID as needed ? Bupropion 150 mg PO daily ? Quetiapine 100 mg PO daily ? Sertaline 100 mg PO HS Hospital management: Disposition: pending cholecystectomy Fluids: LR at 80 cc/hr Diet: NPO, pending procedure Lines: IV DVT prophylaxis: SCDs GI prophylaxis: pantoprazole CODE STATUS: full code Patient's plan and care discussed with my attending, Dr. Noreen Méndez MD PGY-2 Attending Provider Attestation/Addendum I have discussed and was present for the essential components of the history, physical examination, diagnosis, and treatment plan with the resident. I agree with the patient's care as documented by the resident and amended herein by me. Pio Sorto DO. Although this document has been carefully reviewed, there may still be some phonetic and other typographical errors. These errors are purely grammatical due to imperfections in the software program and should not be construed in any way to compromise the substance of the patient's medical care during this visit.
[2025-02-16] VITALS (10 sets, daily range): BP systolic 109–148; BP diastolic 65–85; PULSE 66–81; RESP 12–96; TEMP 36.1–36.6; O2SAT 93–98
[2025-02-16] MEDS: MORPHINE SULF INJ 10 MG/ML VIAL 4 MG IVP ×4 (01:47→14:20)
[2025-02-16] MEDS: SIMETHICONE 80 MG CHEW PO (02:04)
[2025-02-16] MEDS: GABAPENTIN 300 MG CAPSULE PO ×3 (05:47→21:02)
[2025-02-16 06:20] LABS: Basophils % (Auto) 0 % (0-2.5); Eosinophils % (Auto) 0 % (0-10); Hematocrit 37.7 % (36.0-46.0); Hemoglobin 12.6 g/dL (12.0-16.0); Immature Granulocytes % (Auto) 0 % (0-0); Immature Granulocytes Auto 0.04 Thou/mm3 (0.00-0.00); Lymphocytes # (Auto) 1.3 Thou/mm3 (1.0-4.8); Lymphocytes % (Auto) 9 % (10-50); Mean Corpuscular HGB Conc 33.4 g/dl (31.0-37.0); Mean Corpuscular Hemoglobin 31.5 pg (25.0-35.0); Mean Corpuscular Volume 94 fL (80-100); Monocytes # (Auto) 0.8 Thou/mm3 (0.0-0.8); Monocytes % (Auto) 6 % (0-12); Neutrophils # (Auto) 11.6 Thou/mm3 (1.8-7.7); Neutrophils % (Auto) 85 % (37-80); Nucleated Red Blood Cell % 0 /100 WBC (0); Platelet Count 213 Thou/mm3 (140-440); RDW Standard Deviation 43.9 fL (36.4-46.3); White Blood Count 13.7 Thou/mm3 (3.6-11.0)
[2025-02-16 06:48] LABS: Anion Gap 7 (7-16); BUN/Creatinine Ratio 13 Ratio (12-20); Blood Urea Nitrogen 8 mg/dL (9-23); Calcium 8.9 mg/dL (8.3-10.6); Carbon Dioxide 28.3 mMol/L (20.0-31.0); Chloride 105 mMol/L (98-107); Creatinine (Component) 0.6 mg/dL (0.6-1.3); Estimated Creatinine Clearance 133.1 mL/min (>60); Glucose 124 mg/dL (74-106); Magnesium 1.9 mg/dL (1.6-2.6); Osmolality,Calculated 278 (275-295); Phosphorous 3.2 mg/dL (2.4-5.1); Potassium 3.5 mMol/L (3.4-5.1); Sodium 140 mMol/L (136-145); eGFR > 60 See Note
[2025-02-16] MEDS: BUPROPION HCL 150 MG PO (09:42)
[2025-02-16] MEDS: DOCUSATE SOD 100 MG CAPSULE PO ×2 (09:42→21:02)
[2025-02-16] MEDS: SACUBITRIL 24 MG/VALSARTAN 26 MG TABLET 1 TAB PO ×2 (09:43→21:02)
[2025-02-16] MEDS: QUEtiapine FUMARATE 100 MG TABLET PO (09:43)
[2025-02-16] MEDS: carVEDILOL 12.5 MG TABLET 25 MG PO ×2 (09:48→17:52)
[2025-02-16] MEDS: PANTOPRAZOLE INJ 40 MG VIAL IVP (09:58)
[2025-02-16] MEDS: ONDANSETRON INJ 2 MG/ML INJ 2 ML 4 MG IV ×2 (10:02→18:26)
--- NOTE | 2025-02-16 10:14 | PC.SS ---
SS follow up note; Patient will discharge home today.
[2025-02-16 11:07] LABS: Alanine Aminotransferase 17 U/L (10-49); Albumin, Serum 4.4 gm/dL (3.5-5.0); Alkaline Phosphatase 78 U/L (46-116); Aspartate Amino Transferase 20 U/L (0-34); Bilirubin,Direct 0.2 mg/dL (0.0-0.3); Bilirubin,Total 0.7 mg/dL (0.3-1.2); Total Protein 6.9 gm/dL (5.7-8.2)
--- NOTE | 2025-02-16 13:02 | PD.SURPROG ---
Documentation for date of: 02/16/25 Subjective Subjective Narrative: Patient is seen and examined. She is complaining of epigastric incisional tenderness. She is tolerating diet well without nausea or vomiting Exam Vital Signs Temp Pulse Resp BP Pulse Ox O2 Del Method O2 Flow Rate 97.9 F 66 12 115/85 H 98 Nasal Cannula 2 02/16/25 11:56 02/16/25 11:56 02/16/25 11:56 02/16/25 11:56 02/16/25 11:56 02/16/25 11:56 02/16/25 11:56 Constitutional Constitutional: no acute distress Routine Abdominal Exam Comments: Abdomen is soft and nondistended. Incisions are clean, dry and intact. She has epigastric incisional tenderness Assessment & Plan Assessment Additional comments: Postop day #1 status post laparoscopic cholecystectomy. Liver enzymes are normal Plan Patient can be discharged. Follow-up with Dr Irizarry in 2 weeks Procedures Procedures Laparoscopic cholecystectomy
--- NOTE | 2025-02-16 15:29 | ESPR_ITS ---
Documentation for date of: 02/16/25 Subjective Subjective Interval history: Overnight, patient received 8 mg of morphine after patient got up to use the restroom. Patient states that she has severe right sharp upper quadrant pain. Patient also is concerned with her pain from her pacemaker, and would like a lidocaine patch. Patient also would like some oxygen to help with her breathing, and states that some times at home she uses oxygen via nasal cannula to help with her anxiety. Patient was also evaluated by Gen adriana Tay and recommended to be discharged after pain is well tolerated. Will wean down patient's IV pain medications, and substitute with oral pain meds. Exam Vital Signs Temp Pulse Resp BP Pulse Ox O2 Del Method O2 Flow Rate 97.9 F 66 12 115/85 H 98 Nasal Cannula 2 02/16/25 11:56 02/16/25 11:56 02/16/25 11:56 02/16/25 11:56 02/16/25 11:56 02/16/25 11:56 02/16/25 11:56 Narrative Exam General Appearance: Pt in no apparent distress, able to speak full sentences, well-nourished, well-developed. On nasal cannula. HEENT: NC/AT, no scleral icterus, no conjunctival pallor, MMM Lungs: CTAB, no wheezes or crackles appreciated CVS: RRR, S1/S2 heard, no murmurs or rubs appreciated ABD: Severe tenderness in right upper quadrant radiating to back, obese soft, non-distended, BS + EXT: no deformity/edema/lesions/cyanosis/clubbing, radial pulses 2+ BL, DP pulses 2 + BL SKIN: Skin exam normal without any rashes. Neuro: A&O x 3. No gross neurological deficits. Motor and sensory grossly intact in B/L UL and LL. Psych: Appropriate mood and affect Objective Labs 02/17/25 05:33 02/17/25 05:33 Labs: Laboratory Results - last 24 hr 02/16/25 05:52 WBC 13.7 H D RBC 4.00 Hgb 12.6 Hct 37.7 MCV 94 MCH 31.5 MCHC 33.4 RDW Std Deviation 43.9 Plt Count 213 Neut % (Auto) 85 H Lymph % (Auto) 9 L [place] % (Auto) 6 Eos % (Auto) 0 Baso % (Auto) 0 Neut # (Auto) 11.6 H Lymph # (Auto) 1.3 [place] # (Auto) 0.8 Eos # (Auto) 0.0 Baso # (Auto) 0.0 Immature Gran # (Auto) 0.04 H Absolute Nucleated RBC 0.00 Immature Gran % 0 Nucleated RBC % 0 Sodium 140 Potassium 3.5 Chloride 105 Carbon Dioxide 28.3 Anion Gap 7 BUN 8 L Creatinine 0.6 Estim Creat Clear Calc 133.1 eGFR > 60 BUN/Creatinine Ratio 13 Glucose 124 H Calculated Osmolality 278 Calcium 8.9 Phosphorus 3.2 Magnesium 1.9 Total Bilirubin 0.7 Direct Bilirubin 0.2 AST 20 ALT 17 Alkaline Phosphatase 78 Total Protein 6.9 Albumin 4.4 Quality Measures Quality Measures none Assessment & Plan Assessment Current Active Medications: Generic Name Dose Route Start Last Admin Trade Name Freq PRN Reason Stop Dose Admin Acetaminophen 650 mg 02/14/25 12:01 02/14/25 20:13 Acetaminophen 325 Mg Tablet PO 03/16/25 12:00 650 mg Q6H PRN Administration PAIN 1-3 OR FEVER > 100.4 Hydrocodone Bitart/Acetaminophen 1 tab 02/14/25 12:01 02/15/25 23:32 Hydrocodone/Apap 5/325 Tablet PO 02/19/25 12:00 1 tab Q6HR PRN Administration PAIN SCALE 4-6 (Moderate Alprazolam 1 mg 02/14/25 12:06 02/15/25 20:59 Alprazolam 0.25 Mg Tablet PO 02/19/25 12:05 1 mg BID PRN Administration ANXIETY Bupropion HCl 150 mg 02/15/25 09:00 02/16/25 09:42 Bupropion Hcl Sr 150 Mg Tabcr PO 03/17/25 08:59 150 mg QDAY LISANDRA Administration Carvedilol 25 mg 02/14/25 17:30 02/16/25 09:48 Carvedilol 12.5 Mg Tablet PO 03/16/25 17:29 25 mg BIDWM LISANDRA Administration Docusate Sodium 100 mg 02/15/25 21:00 02/16/25 09:42 Docusate Sod 100 Mg Capsule PO 03/17/25 20:59 100 mg BID LISANDRA Administration Protocol Gabapentin 300 mg 02/14/25 14:00 02/16/25 14:17 Gabapentin 300 Mg Capsule PO 03/16/25 13:59 300 mg TID LISANDRA Administration Morphine Sulfate 4 mg 02/15/25 22:33 02/16/25 14:20 Morphine Sulf Inj 10 Mg/Ml Vial IVP 02/19/25 12:00 4 mg Q4HR PRN Administration PAIN SCALE 7-10 (Severe Ondansetron HCl 4 mg 02/14/25 12:01 02/16/25 10:02 Ondansetron Inj 2 Mg/Ml Inj 2 Ml IV 03/16/25 12:00 4 mg Q6H PRN Administration NAUSEA OR VOMITING Protocol Pantoprazole Sodium 40 mg 02/15/25 09:00 02/16/25 09:58 Pantoprazole Inj 40 Mg Vial IVP 03/17/25 08:59 40 mg QDAY LISANDRA Administration Quetiapine Fumarate 100 mg 02/15/25 09:00 02/16/25 09:43 Quetiapine Fumarate 100 Mg Tablet PO 03/17/25 08:59 100 mg QDAY LISANDRA Administration Sacubitril/Valsartan 1 tab 02/14/25 21:00 02/16/25 09:43 Sacubitril 24 Mg/Valsartan 26 Mg Tablet PO 03/16/25 20:59 1 tab BID LISANDRA Administration Sertraline HCl 100 mg 02/14/25 21:00 02/15/25 20:59 Sertraline Hcl 25 Mg Tablet PO 03/16/25 20:59 100 mg HS LISANDRA Administration Simethicone 80 mg 02/16/25 01:55 02/16/25 02:04 Simethicone 80 Mg Chew PO 03/18/25 08:59 80 mg DAILY PRN Administration bloating Plan Herlinda Garcia is a 55-year-old female with a past medical history of CHF status- post ICD and pacemaker placement (follows Dr. Pritchett in [place]), history of myocardial infarction per patient, anxiety, and depression who presents on 02/14 for abdominal pain. Per patient, she was scheduled for an outpatient cholecystectomy sometime this month but could not bear pain any longer and presented to the ED. Admitted for abdominal pain secondary to biliary colic/cholelithiasis requiring cholecystectomy. #Cholelithiasis status post cholecystectomy, postop day 1 patient continues to have right sharp #Reactive leukocytosis in the setting of recent cholecystectomy Presents with right-sided abdominal pain for which patient was scheduled for outpatient cholecystectomy but due to unbearable pain presented to the ED. Afebrile, on room air, very mild leukocytosis, normal T. bili/ALP/LFTs. Right upper quadrant pain on exam. Gallbladder ultrasound showed cholelithiasis without signs of cholecystitis, irregular liver with fatty infiltration. Upper quadrant pain. LFTs were within normal limits. ? General Surgery consulted, recommended to discharge once patient is able to tolerate diet and pain improves medications ? Patient able to tolerate diabetic full liquid diet and advance to carb consistent diet ? Pain regimen: Mild to Moderate (1-310) Acetaminophen 650mg Q6H PO PRN, Mod to Severe (4-610) ibuprofen Q6H PO PRN , Severe (7-10) hydrocodone every 6, and IV morphine 1 mg for breakthrough pain #History of CHF s/p ICD and pacemaker Follows Dr. Pritchett in [place]. ? Continue carvedilol 25 mg PO BID and Entresto twice daily ? Will hold bumex and jardiance at this time #Anxiety #Depression ? Alprazolam 1 mg PO BID as needed ? Bupropion 150 mg PO daily ? Quetiapine 100 mg PO daily ? Sertaline 100 mg PO HS Hospital management: Disposition: Wean down IV pain medications to oral pain meds, anticipate discharge within 24 to 48 hours Diet: Carb consistent diet Lines: IV DVT prophylaxis: SCDs GI prophylaxis: pantoprazole CODE STATUS: full code Patient's plan and care discussed with my attending, Dr. Noreen Méndez MD PGY-2 Attending Provider Attestation/Addendum I have discussed and was present for the essential components of the history, physical examination, diagnosis, and treatment plan with the resident. I agree with the patient's care as documented by the resident and amended herein by me. Pio Sorto DO. Although this document has been carefully reviewed, there may still be some phonetic and other typographical errors. These errors are purely grammatical due to imperfections in the software program and should not be construed in any way to compromise the substance of the patient's medical care during this visit.
[2025-02-16] MEDS: MORPHINE SULF INJ 10 MG/ML VIAL IVP (18:26)
[2025-02-16] MEDS: LIDOCAINE 5% 1 PATCH TOP (18:27)
[2025-02-16] MEDS: SERTRALINE HCL 25 MG TABLET 100 MG PO (21:01)
[2025-02-16] MEDS: ALPRazoLAM 0.25 MG TABLET 1 MG PO (21:04)
[2025-02-17] VITALS: BP 117/73; PULSE 78; RESP 17; TEMP 36.3; O2SAT 97
[2025-02-17 04:00] VITALS: BP 141/85; PULSE 85; RESP 17; TEMP 36.3; O2SAT 95
[2025-02-17] MEDS: GABAPENTIN 300 MG CAPSULE PO (05:15)
[2025-02-17 06:18] LABS: Basophils # (Auto) 0.1 Thou/mm3 (0.0-0.2); Basophils % (Auto) 0 % (0-2.5); Eosinophils # (Auto) 0.1 Thou/mm3 (0.0-0.5); Eosinophils % (Auto) 1 % (0-10); Hematocrit 39.1 % (36.0-46.0); Immature Granulocytes % (Auto) 0 % (0-0); Immature Granulocytes Auto 0.04 Thou/mm3 (0.00-0.00); Lymphocytes # (Auto) 1.7 Thou/mm3 (1.0-4.8); Lymphocytes % (Auto) 14 % (10-50); Mean Corpuscular HGB Conc 33.2 g/dl (31.0-37.0); Mean Corpuscular Hemoglobin 31.2 pg (25.0-35.0); Mean Corpuscular Volume 94 fL (80-100); Monocytes # (Auto) 0.9 Thou/mm3 (0.0-0.8); Monocytes % (Auto) 8 % (0-12); Neutrophils # (Auto) 9.3 Thou/mm3 (1.8-7.7); Neutrophils % (Auto) 77 % (37-80); Nucleated Red Blood Cell % 0 /100 WBC (0); Platelet Count 217 Thou/mm3 (140-440); RDW Standard Deviation 44.8 fL (36.4-46.3); Red Blood Count 4.17 Miln/mm3 (4.00-5.20); White Blood Count 12.1 Thou/mm3 (3.6-11.0)
[2025-02-17 06:24] LABS: Anion Gap 8 (7-16); BUN/Creatinine Ratio 19 Ratio (12-20); Blood Urea Nitrogen 15 mg/dL (9-23); Calcium 8.8 mg/dL (8.3-10.6); Carbon Dioxide 29.1 mMol/L (20.0-31.0); Chloride 104 mMol/L (98-107); Creatinine (Component) 0.8 mg/dL (0.6-1.3); Estimated Creatinine Clearance 99.9 mL/min (>60); Glucose 118 mg/dL (74-106); Magnesium 1.8 mg/dL (1.6-2.6); Osmolality,Calculated 283 (275-295); Phosphorous 3.2 mg/dL (2.4-5.1); Potassium 3.4 mMol/L (3.4-5.1); Sodium 141 mMol/L (136-145); eGFR > 60 See Note
[2025-02-17 07:50] VITALS: BP 130/94; PULSE 84; RESP 16; TEMP 36.2; O2SAT 96
[2025-02-17 08:28] VITALS: BP 130/94; PULSE 84
[2025-02-17] MEDS: BUPROPION HCL 150 MG PO (08:28)
[2025-02-17] MEDS: SACUBITRIL 24 MG/VALSARTAN 26 MG TABLET 1 TAB PO (08:28)
[2025-02-17] MEDS: QUEtiapine FUMARATE 100 MG TABLET PO (08:28)
[2025-02-17] MEDS: carVEDILOL 12.5 MG TABLET 25 MG PO (08:28)
[2025-02-17] MEDS: DOCUSATE SOD 100 MG CAPSULE PO (08:28)
[2025-02-17 10:53] VITALS: PULSE 90; RESP 18; RESP 93
[2025-02-17 11:47] VITALS: BP 130/94; PULSE 84; RESP 16; TEMP 36.2; O2SAT 96
--- NOTE | 2025-02-17 13:36 | PC.SS ---
SS follow up note; Patient will discharge home today.
--- NOTE | 2025-02-17 15:06 | ESDS_ITS ---
Planned Discharge Date 02/17/25 DS: Providers Provider Date of admission: 02/14/25 12:01 Primary care physician: Wilbur Yen MD Admitting Provider: Tu Gold MD Attending Provider on Admission: Nelson Sorto DO Consults: 02/14/25 10:49 Consult to General Surgery Stat Comment: Consulting Provider: Leroy Irizarry Attending Provider on DC: Nelson Sorto DO Discharging Provider: Nelson Sorto DO Diagnosis Problem List Completed Was Problem List Reviewed/Reconciled?: Yes Hospital Course - Hospitalist Hospital Course Hospital course: Patient is a 55-year-old female with significant past medical history of CHF and ICD placement, [place] in the past, anxiety, depression who presented on 02/14 to the ED for abdominal pain. Patient was originally scheduled for outpatient cholecystectomy however the pain became unbearable and was admitted for cholecystectomy. General surgery, Dr. Irizarry was consulted and laparoscopic cholecystectomy was performed on 02/15 in which the patient tolerated the procedure very well. On 02/16 the patient had continued significant pain in her right upper quadrant and she was helped with an additional day until she improved. On day of discharge she was, stable, tolerating p.o. intake, afebrile and ambulatory. The patient was discharged with a 3-day course of [place] for pain. Patient was instructed to return to the emergency department for any worsening or persistent symptoms. #Cholelithiasis status post cholecystectomy #Reactive leukocytosis in the setting of recent cholecystectomy #History of CHF s/p ICD and pacemaker #History of anxiety #History of depression Time Spent with Patient Time attestation: Total time spent providing and/or coordinating discharge services: Time spent: Greater than 30 minutes Discharge Results Labs Diagrams: 02/17/25 05:33 02/17/25 05:33 Labs: Short CBC 02/17/25 Range/Units 05:33 WBC 12.1 H (3.6-11.0) Thou/mm3 Hgb 13.0 (12.0-16.0) g/dL Hct 39.1 (36.0-46.0) % Plt Count 217 (140-440) Thou/mm3 BMP 02/17/25 05:33 Sodium 141 Potassium 3.4 Chloride 104 Carbon Dioxide 29.1 BUN 15 Creatinine 0.8 Glucose 118 H Calcium 8.8 Exam Vital Signs Temp Pulse Resp BP Pulse Ox O2 Del Method O2 Flow Rate 97.1 F 84 16 130/94 H 96 Room Air 2 02/17/25 11:47 02/17/25 11:47 02/17/25 11:47 02/17/25 11:47 02/17/25 11:47 02/17/25 11:47 02/17/25 11:47 Discharge Plan Plan Patient Disposition: HOME (Self Care) Prescriptions/Referrals Prescriptions/Med Rec: New hydrocodone-acetaminophen 5-325 mg tablet 1 tab PO Q8H MDD 3 tab PRN (Reason: pain) 3 Days Qty: 10 0RF Continued furosemide [Lasix] 40 MG tablet 20 mg PO QDAY Qty: 0 spironolactone 25 mg tablet 25 mg PO QAM Qty: 14 0RF sertraline 50 mg Tablet 100 mg PO QDAY aspirin 81 mg Tablet,Delayed Release (Dr/Ec) 81 mg PO QDAY losartan 25 mg Tablet 25 mg PO QDAY baclofen 20 mg tablet 20 mg PO QDAY Qty: 10 0RF naproxen 500 mg tablet 500 mg PO BID PRN (Reason: pain) Qty: 30 0RF albuterol sulfate 90 mcg/actuation HFA aerosol inhaler 2 puff inhalation QID Qty: 18 0RF alprazolam 2 mg tablet 2 mg PO BID carvedilol 25 mg PO BID Premarin 0.625 mg PO QDAY bumetanide 2 mg tablet 2 mg PO QDAY sertraline 100 mg tablet 100 mg PO QDAY quetiapine 100 mg tablet 100 mg PO QDAY bupropion HCl 150 mg tablet sustained-release 12 hr 150 mg PO QDAY Jardiance 25 mg PO QDAY medroxyprogesterone 2.5 mg tablet 2.5 mg PO QDAY gabapentin 300 mg capsule 300 mg PO TID Entresto 24-26 mg tablet 1 tab PO BID Discontinued amoxicillin 500 mg tablet 500 mg PO TID Qty: 30 0RF azithromycin 250 mg tablet See Rx Instructions .ROUTE .COMPLEX Qty: 6 0RF Rx Instructions: take 500 mg today (day 1), then 250 mg for 4 days (days 2-5) hydrocodone-acetaminophen 5-325 mg tablet 2 tab PO TID MDD 6 PRN (Reason: pain) Qty: 30 0RF amoxicillin-pot clavulanate 875-125 mg tablet 1 tab PO BID Qty: 14 0RF hydrocodone-acetaminophen 10-325 mg tablet 1 tab PO BID No Action carvedilol [Coreg] 6.25 MG tablet 6.25 mg PO BID Qty: 0 docusate sodium [DOK] 100 mg Capsule 100 mg PO QDAY ferrous sulfate [Feosol] 325 mg (65 mg iron) Tablet 325 mg PO QDAY alprazolam 2 mg Tablet 2 mg PO TID baclofen 10 mg tablet 10 mg PO BID Qty: 10 0RF Referrals: Wilbur Yen MD [Primary Care Provider] - Patient/Caregiver Discharge Instructions Other Discharge Activity Instructions:: Please return to the ED for persistent or worsening symptoms Please follow-up with your primary care provider within 7-10 days of discharge from hospital Education Materials: Preventing Surgical Site Infections Print Language: Sinhala Activity Restrictions/Additional Instructions: May shower in 24 hours. Avoid lifting, straining, pulling or pushing for 4 weeks. May take over the counter laxatives if no bowel movement in 2 days. Follow up with Dr. Irizarry in 2 weeks, call [phone] for an appointment. Continue low-fat diet for 1 week then advance diet as tolerated. Stand Alone Forms: Lexie Award Info., Patient Portal Info Letter, Work/Release Restrictions Discharge Order Discharge Orders: Discharge (Routine); Ordered 02/17/25 Ordered By: Nelson Sorto Quality Discharge Quality Measures VTE prophylaxis
== END 2025-02-17 13:16 | disposition home or self-care (01) ==
LOC: SERX 09:30 → SERHOLD 12:59 → S3SX 14:31 → SERHOLD 02-15 11:31 → S3SX 02-15 11:31
PROVIDERS: Nurse Practitioner Primary Care; Surgery; Admitting Provider Student in an Organized Health Care Education/Training Program; Emergency Provider Emergency Medicine; PCP Family Medicine; Visit Provider Student in an Organized Health Care Education/Training Program
PROC: 0FT44ZZ Resection of Gallbladder, Percutaneous Endoscopic Approach (ICD-10-PCS; CPT 47562; principal; 2025-02-15 10:30)
DX: K80.10 Calculus of gallbladder with chronic cholecystitis without obstruction (principal); K76.0 Fatty (change of) liver, not elsewhere classified; E11.9 Type 2 diabetes mellitus without complications; E66.01 Morbid (severe) obesity due to excess calories; E78.00 Pure hypercholesterolemia, unspecified; F41.8 Other specified anxiety disorders; I11.0 Hypertensive heart disease with heart failure; I25.2 Old myocardial infarction; I50.9 Heart failure, unspecified; Z95.0 Presence of cardiac pacemaker
CPT/HCPCS: 47562; 36415; 76705; 80048; 80053; 80061; 80076; 81001; 81025; 83690; 83735; 84100; 84484; 85025; 85610; 85730; 87077; 87086; 87186; 96365; 96366; 96372; 96374; 96375; 99285; A4217; A4649; G0378; J0131; J0694; J1100; J1885; J2250; J2270; J2371; J2405; J2470; J2704; J3010; J3480; J3490; J7030; Q0162; A9270